=== PATIENT | male | born 1955 | race Caucasian/White ===

== ENCOUNTER 2016-12-06 09:19 | Day surgery (SDC) | payer BC ==
[2016-12-05 08:18] VITALS: BMI 25.7
[~2016-12-06 09:19] MED LIST: LACTATED RINGERS 1,000 ML IV SCH; LIDOCAINE 1% 20 ML VIAL (10MG/ML) FOR IV START INTRADERMA PRN
[2016-12-06 10:03] VITALS: RESP 16; TEMP 98.4
[2016-12-06] MEDS ORDERED: LIDOCAINE 1% 20 ML VIAL (10MG/ML) FOR IV START INTRADERMA ONE (10:08)
[2016-12-06] MEDS ORDERED: PROPOFOL 10 MG/ML 20 ML VIAL IV ONE (10:43)
[2016-12-06] MEDS ORDERED: LIDOCAINE 1% INJ 10MG/ML (20 ML MDV) ONE (10:43)
--- NOTE | 2016-12-06 11:04 | P.PCN ---
Date of Procedure: 12/06/16 Procedure(s) Performed: BRIEF HISTORY: Patient is a 61-year-old pleasant male, scheduled for an elective colonoscopy as a part of screening for colon neoplasia. PROCEDURE PERFORMED: Colonoscopy. PREOPERATIVE DIAGNOSIS: Screening for Colon cancer. IV sedation per Anesthesia. PROCEDURE: After informed consent was obtained, the patient, was brought into the endoscopy unit. IV sedation was administered by Anesthesia under continuous monitoring. Digital rectal examination was normal. Initially the Olympus CF- 160 flexible video colonoscope was then inserted in the rectum, gradually advanced into the cecum without any difficulty. Careful examination was performed as the scope was gradually being withdrawn. Ileocecal valve and the appendiceal orifice were visualized and appeared normal. Prep was excellent. Mucosa of the cecum, ascending colon, transverse colon, descending colon, sigmoid colon, and rectum appeared normal. Retroflexion was performed in the rectum and no lesions were seen. The patient tolerated the procedure well. IMPRESSION: Normal-appearing colon from rectum to cecum with no evidence of colorectal neoplasia. RECOMMENDATIONS: Findings of this examination were discussed with the patient as well as his family. He was advised to have a repeat screening colonoscopy in 10 years.
[2016-12-06 11:29] VITALS: BP 122/66; PULSE 55
== END 2016-12-06 11:51 | disposition home or self-care (01) ==
LOC: ORWHC2ENDO 09:19
PROVIDERS: ATTEND Internal Medicine Gastroenterology
DX: Z12.11 Encounter for screening for malignant neoplasm of colon (principal); I48.91 Unspecified atrial fibrillation; Z79.82 Long term (current) use of aspirin; Z79.899 Other long term (current) drug therapy
CPT/HCPCS: J2001; J2704; G0121

== ENCOUNTER 2022-10-07 06:08 | Inpatient (IN) | payer BC, MEDICARE ==
--- NOTE | 2022-10-07 06:40 | ED ---
Abdominal Pain HPI - General Chief Complaint: Abdominal Pain Stated Complaint: Drug reaction Time Seen by Provider: 10/07/22 06:21 Source: patient, RN notes reviewed Mode of arrival: ambulatory Limitations: no limitations - History of Present Illness Initial Comments: 66-year-old male presents emergency Department chief complaint of abdominal, leg swelling and shortness of breath. Patient states that started having shortness breath last week went to his PCPs office who told him he had an upper respiratory infection was placed on prednisone. Patient states that he started on Friday by Friday he had worsening swelling and which has now stopped his prednisone. Patient states is no history of congestive heart failure. Patient does have history of atrial fibrillation on Eliquis, Toprol and Lipitor. Patient denies any fevers chills denies sore throat. Patient hasn't went headache or any other reported URI symptoms. Patient states she does have some orthopnea. Patient denies any recent echo. - Related Data Home Medications Medication Instructions Recorded Confirmed Aspirin [Adult Low Dose Aspirin EC] 81 mg PO DAILY 10/23/16 12/05/16 Atorvastatin [Lipitor] 40 mg PO HS 10/23/16 12/06/16 Folic Acid 0.4 mg PO DAILY 10/23/16 12/05/16 Vitamin B Complex 1 each PO DAILY 10/23/16 12/05/16 Allergies Allergy/AdvReac Type Severity Reaction Status Date / Time No Known Allergies Allergy Verified 12/06/16 10:01 Review of Systems ROS Statement: Those systems with pertinent positive or pertinent negative responses have been documented in the HPI. ROS Other: All systems not noted in ROS Statement are negative. Past Medical History Past Medical History: Cancer, Hyperlipidemia Additional Past Medical History / Comment(s): [id number] REMISSION since 04/2014 History of Any Multi-Drug Resistant Organisms: None Reported Additional Past Surgical History / Comment(s): PORT A CATH FOR CHEMO THEN REMOVED. COLONOSCOPY Past Anesthesia/Blood Transfusion Reactions: Motion Sickness Past Psychological History: No Psychological Hx Reported Smoking Status: Never smoker Past Alcohol Use History: Occasional Past Drug Use History: None Reported - Past Family History Mother Family Medical History: Cancer General Exam Limitations: no limitations General appearance: alert, in no apparent distress Head exam: Present: atraumatic, normocephalic, normal inspection Eye exam: Present: normal appearance, PERRL, EOMI. Absent: scleral icterus, conjunctival injection, periorbital swelling ENT exam: Present: normal exam, mucous membranes moist Neck exam: Present: normal inspection, full ROM. Absent: tenderness, meningismus, lymphadenopathy Respiratory exam: Present: decreased breath sounds. Absent: normal lung sounds bilaterally, respiratory distress, wheezes, rales, rhonchi, stridor Cardiovascular Exam: Present: tachycardia, irregular rhythm, normal heart sounds. Absent: systolic murmur, diastolic murmur, rubs, gallop, clicks GI/Abdominal exam: Present: soft, distended, normal bowel sounds. Absent: tenderness, guarding, rebound, rigid Extremities exam: Present: pedal edema Neurological exam: Present: alert Skin exam: Present: warm, dry, intact, normal color. Absent: rash Course Vital Signs 10/07/22 10/07/22 10/07/22 06:16 06:33 07:47 Temperature 98.1 F 97.6 F Pulse Rate 157 H 154 H 158 H Respiratory 18 16 20 Rate Blood Pressure 134/86 117/90 117/99 O2 Sat by Pulse 98 97 Oximetry 10/07/22 08:03 Temperature Pulse Rate 125 H Respiratory 20 Rate Blood Pressure 100/90 O2 Sat by Pulse 96 Oximetry Medical Decision Making - Medical Decision Making Was pt. sent in by a medical professional or institution (, PA, APPLIED PSYCHOLOGY CHAIR, urgent care, hospital, or senior care...) When possible be specific @ -No Did you speak to anyone other than the patient for history (EMS, parent, family, police, friend...)? What history was obtained from this source @ -No Did you review nursing and triage notes (agree or disagree)? Why? @ -I reviewed and agree with nursing and triage notes Were old charts reviewed (outside hosp., previous admission, EMS record, old EKG, old radiological studies, urgent care reports/EKG's, senior care records)? Report findings @ -No old charts were reviewed Differential Diagnosis (chest pain, altered mental status, abdominal pain women, abdominal pain men, vaginal bleeding, weakness, fever, dyspnea, syncope, headache, dizziness, GI bleed, back pain, seizure, CVA, palpatations, mental health, musculoskeletal)? @ -nDifferential Dyspnea: Coronary syndrome, arrhythmia, tamponade, asthma, COPD, pulmonary embolism, pneumonia, pneumothorax, pulmonary effusion, anaphylaxis, diabetic ketoacidosis, flailed chest, pulmonary contusion, diaphragmatic rupture, anemia, neuromuscular, this is not meant to be an all-inclusive list. e EKG interpreted by me (3pts min.). @ -As above X-rays interpreted by me (1pt min.). @ -Chest x-ray shows pulmonary edema, questionable bibasilar infiltrates CT interpreted by me (1pt min.). @ -None done U/S interpreted by me (1pt. min.). @ -None done What testing was considered but not performed or refused? (CT, X-rays, U/S, labs)? Why? @ -None What meds were considered but not given or refused? Why? @ -None Did you discuss the management of the patient with other professionals (professionals i.e. , PA, APPLIED PSYCHOLOGY CHAIR, lab, RT, psych nurse, child welfare social worker, health education aide, teacher, commanding officer motorized squad, sample case porter)? Give summary @ -EM for admission secondary to A. fib RVR, CHF versus pneumonia patient with consult to cardiology. Was smoking cessation discussed for >3mins.? @ -No Was critical care preformed (if so, how long)? @ -35 minutes of critical care Were there social determinants of health that impacted care today? How? (Homelessness, low income, unemployed, alcoholism, drug addiction, transportation, low edu. Level, literacy, decrease access to med. care, shelter, rehab)? @ -No Was there de-escalation of care discussed even if they declined (Discuss DNR or withdrawal of care, Hospice)? DNR status @ -No What co-morbidities impacted this encounter? (DM, HTN, Smoking, COPD, CAD, Cancer, CVA, ARF, Chemo, Hep., AIDS, mental health diagnosis, sleep apnea, morbid obesity)? @ -A. fib, hyperlipidemia Was patient admitted / discharged? Hospital course, mention meds given and route, prescriptions, significant lab abnormalities, going to OR and other pertinent info. @ -Admitted patient's found to be in A. fib RVR with heart rate of 170 patient was started on Cardizem bolus along with Cardizem infusion. Chest x-ray shows questionable pneumonia versus CHF type picture. Patient was given Lasix, Rocephin, azithromycin. Patient is admitted with cardiology consult patient will have echocardiogram. Patient's heart rate is improving with Cardizem infusion. Undiagnosed new problem with uncertain prognosis? @ -No Drug Therapy requiring intensive monitoring for toxicity (Heparin, Nitro, Insulin, Cardizem)? @ -Cardizem Were any procedures done? @ -No Diagnosis/symptom? @ -A. fib RVR/chf/pneumonia Acute, or Chronic, or Acute on Chronic? @ -Acute Uncomplicated (without systemic symptoms) or Complicated (systemic symptoms)? @ -Complicated Side effects of treatment? @ -No Exacerbation, Progression, or Severe Exacerbation? @ -No Poses a threat to life or bodily function? How? (Chest pain, USA, MA, pneumonia, PE, COPD, DKA, ARF, appy, cholecystitis, CVA, Diverticulitis, Homicidal, Gaytan icidal, threat to staff... and all critical care pts) @ -Yes] - Lab Data Result diagrams: 10/07/22 06:50 10/07/22 06:50 Lab Results 10/07/22 10/07/22 10/07/22 Range/Units 06:50 06:50 06:50 WBC 6.3 (3.8-10.6) k/uL RBC 4.03 L (4.30-5.90) m/uL Hgb 13.8 (13.0-17.5) gm/dL Hct 40.0 (39.0-53.0) % MCV 99.4 (80.0-100.0) fL MCH 34.3 (25.0-35.0) pg MCHC 34.5 (31.0-37.0) g/dL RDW 14.3 (11.5-15.5) % Plt Count 140 L (150-450) k/uL MPV 9.0 Neutrophils % 71 % Lymphocytes % 18 % Monocytes % 6 % Eosinophils % 3 % Basophils % 0 % Neutrophils # 4.5 (1.3-7.7) k/uL Lymphocytes # 1.2 (1.0-4.8) k/uL Monocytes # 0.4 (0-1.0) k/uL Eosinophils # 0.2 (0-0.7) k/uL Basophils # 0.0 (0-0.2) k/uL Macrocytosis Slight PT 11.3 (9.0-12.0) sec INR 1.1 (<1.2) APTT 23.1 (22.0-30.0) sec Sodium 135 L (137-145) mmol/L Potassium 4.0 (3.5-5.1) mmol/L Chloride 108 H (98-107) mmol/L Carbon Dioxide 21 L (22-30) mmol/L Anion Gap 6 mmol/L BUN 20 (9-20) mg/dL Creatinine 0.80 (0.66-1.25) mg/dL Est GFR (CKD-EPI)AfAm >90 (>60 ml/min/1.73 sqM) Est GFR (CKD-EPI)NonAf >90 (>60 ml/min/1.73 sqM) Glucose 121 H (74-99) mg/dL Plasma Lactic Acid Lenny (0.7-2.0) mmol/L Calcium 8.8 (8.4-10.2) mg/dL Magnesium 2.1 (1.6-2.3) mg/dL Total Bilirubin 0.6 (0.2-1.3) mg/dL AST 87 H (17-59) U/L ALT 218 H (4-49) U/L Alkaline Phosphatase 62 (38-126) U/L Troponin I (0.000-0.034) ng/mL NT-Pro-B Natriuret Pep 2060 pg/mL Total Protein 5.2 L (6.3-8.2) g/dL Albumin 3.3 L (3.5-5.0) g/dL Urine Color Urine Appearance (Clear) Urine pH (5.0-8.0) Ur Specific Gering (1.001-1.035) Urine Protein (Negative) Urine Glucose (UA) (Negative) Urine Ketones (Negative) Urine Blood (Negative) Urine Nitrite (Negative) Urine Bilirubin (Negative) Urine Urobilinogen (<2.0) mg/dL Ur Leukocyte Esterase (Negative) Coronavirus (PCR) (Not Detectd) 10/07/22 10/07/22 10/07/22 Range/Units 06:50 06:50 07:38 WBC (3.8-10.6) k/uL RBC (4.30-5.90) m/uL Hgb (13.0-17.5) gm/dL Hct (39.0-53.0) % MCV (80.0-100.0) fL MCH (25.0-35.0) pg MCHC (31.0-37.0) g/dL RDW (11.5-15.5) % Plt Count (150-450) k/uL MPV Neutrophils % % Lymphocytes % % Monocytes % % Eosinophils % % Basophils % % Neutrophils # (1.3-7.7) k/uL Lymphocytes # (1.0-4.8) k/uL Monocytes # (0-1.0) k/uL Eosinophils # (0-0.7) k/uL Basophils # (0-0.2) k/uL Macrocytosis PT (9.0-12.0) sec INR (<1.2) APTT (22.0-30.0) sec Sodium (137-145) mmol/L Potassium (3.5-5.1) mmol/L Chloride (98-107) mmol/L Carbon Dioxide (22-30) mmol/L Anion Gap mmol/L BUN (9-20) mg/dL Creatinine (0.66-1.25) mg/dL Est GFR (CKD-EPI)AfAm (>60 ml/min/1.73 sqM) Est GFR (CKD-EPI)NonAf (>60 ml/min/1.73 sqM) Glucose (74-99) mg/dL Plasma Lactic Acid Lenny 1.1 (0.7-2.0) mmol/L Calcium (8.4-10.2) mg/dL Magnesium (1.6-2.3) mg/dL Total Bilirubin (0.2-1.3) mg/dL AST (17-59) U/L ALT (4-49) U/L Alkaline Phosphatase (38-126) U/L Troponin I 0.026 (0.000-0.034) ng/mL NT-Pro-B Natriuret Pep pg/mL Total Protein (6.3-8.2) g/dL Albumin (3.5-5.0) g/dL Urine Color Light Yellow Urine Appearance Clear (Clear) Urine pH 5.5 (5.0-8.0) Ur Specific Gering 1.012 (1.001-1.035) Urine Protein Negative (Negative) Urine Glucose (UA) Negative (Negative) Urine Ketones Negative (Negative) Urine Blood Negative (Negative) Urine Nitrite Negative (Negative) Urine Bilirubin Negative (Negative) Urine Urobilinogen <2.0 (<2.0) mg/dL Ur Leukocyte Esterase Negative (Negative) Coronavirus (PCR) (Not Detectd) 10/07/22 Range/Units 07:38 WBC (3.8-10.6) k/uL RBC (4.30-5.90) m/uL Hgb (13.0-17.5) gm/dL Hct (39.0-53.0) % MCV (80.0-100.0) fL MCH (25.0-35.0) pg MCHC (31.0-37.0) g/dL RDW (11.5-15.5) % Plt Count (150-450) k/uL MPV Neutrophils % % Lymphocytes % % Monocytes % % Eosinophils % % Basophils % % Neutrophils # (1.3-7.7) k/uL Lymphocytes # (1.0-4.8) k/uL Monocytes # (0-1.0) k/uL Eosinophils # (0-0.7) k/uL Basophils # (0-0.2) k/uL Macrocytosis PT (9.0-12.0) sec INR (<1.2) APTT (22.0-30.0) sec Sodium (137-145) mmol/L Potassium (3.5-5.1) mmol/L Chloride (98-107) mmol/L Carbon Dioxide (22-30) mmol/L Anion Gap mmol/L BUN (9-20) mg/dL Creatinine (0.66-1.25) mg/dL Est GFR (CKD-EPI)AfAm (>60 ml/min/1.73 sqM) Est GFR (CKD-EPI)NonAf (>60 ml/min/1.73 sqM) Glucose (74-99) mg/dL Plasma Lactic Acid Lenny (0.7-2.0) mmol/L Calcium (8.4-10.2) mg/dL Magnesium (1.6-2.3) mg/dL Total Bilirubin (0.2-1.3) mg/dL AST (17-59) U/L ALT (4-49) U/L Alkaline Phosphatase (38-126) U/L Troponin I (0.000-0.034) ng/mL NT-Pro-B Natriuret Pep pg/mL Total Protein (6.3-8.2) g/dL Albumin (3.5-5.0) g/dL Urine Color Urine Appearance (Clear) Urine pH (5.0-8.0) Ur Specific Gering (1.001-1.035) Urine Protein (Negative) Urine Glucose (UA) (Negative) Urine Ketones (Negative) Urine Blood (Negative) Urine Nitrite (Negative) Urine Bilirubin (Negative) Urine Urobilinogen (<2.0) mg/dL Ur Leukocyte Esterase (Negative) Coronavirus (PCR) Not Detected (Not Detectd) - EKG Data -: EKG Interpreted by Me EKG Comments: EKG ordered 6:40 A. fib with RVR rate of 157 QRS 90 QT/QTc 284/372 Critical Care Time Critical Care Time: Yes Total Critical Care Time: 35 Disposition Clinical Impression: Atrial fibrillation with RVR, CHF (congestive heart failure), Pneumonia Disposition: ADMITTED IP TO THIS HOSP Condition: Fair Referrals: Sung Atwood DO [Primary Care Provider] - 1-2 days Time of Disposition: 08:18
[2022-10-07] MEDS ORDERED: DILTIAZEM DRIP BOLUS FROM BAG 1 MG SOLN IV ONE ×2 (06:43→11:35)
[2022-10-07] MEDS: DILTIAZEM 125 MG in SODIUM CHLORIDE 0.9% 100 ML IV SCH ×2 (06:58→20:38)
[2022-10-07 07:04] LABS: Basophils % (A) 0 %; Eosinophils # (A) 0.2 k/uL (0-0.7); Eosinophils % (A) 3 %; HGB 13.8 gm/dL (13.0-17.5); Lymphocytes # (A) 1.2 k/uL (1.0-4.8); Lymphocytes % (A) 18 %; MCH 34.3 pg (25.0-35.0); MCHC 34.5 g/dL (31.0-37.0); MCV 99.4 fL (80.0-100.0); Macrocytosis Slight; Monocytes # (A) 0.4 k/uL (0-1.0); Monocytes % (A) 6 %; Neutrophils # (A) 4.5 k/uL (1.3-7.7); Neutrophils % (A) 71 %; Platelet Count 140 k/uL (150-450); RBC 4.03 m/uL (4.30-5.90); RDW 14.3 % (11.5-15.5); WBC 6.3 k/uL (3.8-10.6)
[2022-10-07 07:12] LABS: INR 1.1 (<1.2); Partial Thromboplastin Time 23.1 sec (22.0-30.0); Prothrombin Time 11.3 sec (9.0-12.0)
--- NOTE | 2022-10-07 07:15 | XR ---
EXAMINATION TYPE: XR chest 2V DATE OF EXAM: 10/07/2022 7:05 AM COMPARISON: None TECHNIQUE: XR chest 2V Frontal and lateral views of the chest. CLINICAL INDICATION:Male, 66 years old with history of difficulty breathing; FINDINGS: Lungs/Pleura: Bibasilar airspace opacities. There is no evidence of pleural effusion, focal consolida tion, or pneumothorax. Pulmonary vascularity: Unremarkable. Heart/mediastinum: Cardiomediastinal silhouette is prominent in size. Atherosclerotic calcifications are seen in the aorta. Musculoskeletal: No acute osseous pathology. IMPRESSION: Bibasilar airspace opacities correlate for pneumonia.
[2022-10-07 07:22] LABS: ALT 218 U/L (4-49); AST 87 U/L (17-59); African American GFR (CKD) >90 (>60 ml/min/1.73 sqM); Albumin 3.3 g/dL (3.5-5.0); Alkaline Phosphatase 62 U/L (38-126); Anion Gap 6 mmol/L; Blood Urea Nitrogen 20 mg/dL (9-20); Calcium 8.8 mg/dL (8.4-10.2); Carbon Dioxide 21 mmol/L (22-30); Chloride 108 mmol/L (98-107); Glucose 121 mg/dL (74-99); Magnesium 2.1 mg/dL (1.6-2.3); Non-African American GFR(CKD) >90 (>60 ml/min/1.73 sqM); Sodium 135 mmol/L (137-145); Total Bilirubin 0.6 mg/dL (0.2-1.3); Total Protein 5.2 g/dL (6.3-8.2)
[2022-10-07 07:28] LABS: NT-Pro-B-Type Natriuretic Pept 2060 pg/mL
[2022-10-07 07:59] LABS: Appearance,Urine Clear (Clear); Bilirubin,Urine Negative (Negative); Blood,Urine Negative (Negative); Color,Urine Light Yellow; Glucose,Urine (UA) Negative (Negative); Ketones,Urine Negative (Negative); Leukocyte Esterase,Urine Negative (Negative); Nitrite,Urine Negative (Negative); PH, Urine 5.5 (5.0-8.0); Protein,Urine Negative (Negative); Specific Gravity,Urine 1.012 (1.001-1.035); Urobilinogen,Urine <2.0 mg/dL (<2.0)
[2022-10-07] MEDS ORDERED: PNEUMONIA PROTOCOL UTILIZED 1 EACH MISC PO PRN (08:18)
[2022-10-07] MEDS ORDERED: AZITHROMYCIN 500 MG in SODIUM CHLORIDE 0.9% 250 ML IVPB STA (08:18)
[2022-10-07] MEDS ORDERED: FUROSEMIDE 10 MG/ML 4 ML VIAL IV STA (08:24)
[2022-10-07] MEDS ORDERED: APIXABAN 5 MG TAB PO SCH (11:00)
[2022-10-07] MEDS ORDERED: METOPROLOL TARTRATE 25 MG TAB PO SCH (11:00)
--- NOTE | 2022-10-07 11:58 | P.CRDCN ---
History of Present Illness History of present illness: HISTORY OF PRESENT ILLNESS: This is a 66-year-old male with a past medical history significant for paroxysmal atrial fibrillation and hyperlipidemia. 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 Stubbs. We have been asked to see the patient in consultation for afib with RVR. Patient examined at the bedside. Patient states he has been feeling short of breath for the past week. He states he went to see his PCP who diagnosed him with a sinus infection. He was prescribed steroids at that time. Patient presented to the hospital with continued shortness of breath and lower extremity edema. Patient was found to be in afib with RVR. Patient states last time he was in atrial fibrillation was brought to years ago to his knowledge. He denies any chest pain or pressure. At the time of examination, he remains in atrial fibrillation with a heart rate around 105. * EKG reveals atrial fibrillation with RVR * Chest xray bibasilar airspace opacities. Correlate for pneumonia. * Laboratory data: WBC 6.3. Hemoglobin 13.8. Platelet count 140. Sodium 135. Potassium 4.0. B UN 20. Creatinine 0.80. Troponin 0.026. ProBNP 2059. * Current home cardiac medications include Xarelto 20mg daily, Lipitor 40 mg at night, and metoprolol succinate 25 mg daily REVIEW OF SYSTEMS: At the time of my exam: CONSTITUTIONAL: Denies fever or chills. HEENT: Denies blurred vision, vision changes, or eye pain. Denies hemoptysis CARDIOVASCULAR: Denies chest pain. Denies orthopnea. Denies PND. Denies palpitations RESPIRATORY: Denies shortness of breath. GASTROINTESTINAL: Denies abdominal pain. Denies nausea or vomiting. HEMATOLOGIC: Denies bleeding disorders. GENITOURINARY: Denies any blood in urine. SKIN: Denies pruitis. Denies rash. PHYSICAL EXAM: VITAL SIGNS: Reviewed. GENERAL: Well-developed in no acute distress. HEENT: Head is normocephalic. Pupils are equal, round. Sclerae anicteric. Mucous membranes of the mouth are moist. Neck supple. No JVD or thyromegaly LUNGS: Respirations even and unlabored. Lungs essentially clear to auscultation bilaterally. HEART: Regular rate and rhythm. S1 and S2 heard. ABDOMEN: Soft. Nondistended. Nontender. EXTREMITIES: Normal range of motion. No clubbing or cyanosis. Peripheral pulses intact. No lower extremity edema NEUROLOGIC: Awake and alert. Oriented x 3. ASSESSMENT: Shortness of breath Paroxysmal atrial fibrillation with RVR Mild acute heart failure, type unknown, echo pending, may be secondary to A. fib with RVR History of hyperlipidemia PLAN: Obtain 2-D echo to assess cardiac structure and function Resume Xarelto Patient received one time dose of IV Lasix in the emergency room. No further diuretics at this time. Add metoprolol tartrate 50 mg twice a day Continue IV Cardizem per Dr. Mark Continue telemetry monitoring Further recommendations pending patient's course Nurse practitioner note has been reviewed by physician. Signing provider agrees with the documented findings, assessment, and plan of care. Past Medical History Past Medical History: Cancer, Hyperlipidemia Additional Past Medical History / Comment(s): [id number] REMISSION since 04/2014 History of Any Multi-Drug Resistant Organisms: None Reported Additional Past Surgical History / Comment(s): PORT A CATH FOR CHEMO THEN REMOVED. COLONOSCOPY Past Anesthesia/Blood Transfusion Reactions: Motion Sickness Past Psychological History: No Psychological Hx Reported Smoking Status: Never smoker Past Alcohol Use History: Occasional Past Drug Use History: None Reported - Past Family History Mother Family Medical History: Cancer Medications and Allergies Home Medications Medication Instructions Recorded Confirmed Type Aspirin [Adult Low Dose Aspirin EC] 81 mg PO DAILY 10/23/16 10/07/22 History Atorvastatin [Lipitor] 40 mg PO HS 10/23/16 10/07/22 History Vitamin B Complex 1 cap PO DAILY 10/23/16 10/07/22 History Albuterol Sulfate [Albuterol 2 puff INHALATION RT-QID PRN 10/07/22 10/07/22 History Sulfate Hfa] Cetirizine HCl [Zyrtec] 10 mg PO DAILY 10/07/22 10/07/22 History Glucosamine/Chondro Gaytan A [Cosamin 1 tab PO HS 10/07/22 10/07/22 History Ds Tablet] Metoprolol Succinate (ER) [Toprol 25 mg PO DAILY 10/07/22 10/07/22 History Xl] Multivitamins, Thera [Multivitamin 1 tab PO HS 10/07/22 10/07/22 History (formulary)] [place]-3/Dha/Epa/Fish Oil [Fish Oil 1 cap PO HS 10/07/22 10/07/22 History 1,000 mg Softgel] predniSONE See Taper PO DIRECTED 10/07/22 10/07/22 History Allergies Allergy/AdvReac Type Severity Reaction Status Date / Time No Known Allergies Allergy Verified 10/07/22 08:48 Physical Exam Vitals: Vital Signs Temp Pulse Resp BP Pulse Ox 10/07/22 08:03 125 H 20 100/90 96 10/07/22 07:47 97.6 F 158 H 20 117/99 97 10/07/22 06:33 154 H 16 117/90 10/07/22 06:16 98.1 F 157 H 18 134/86 98 Intake and Output 10/06/22 10/07/22 10/07/22 22:59 06:59 14:59 Intake Total 3 Output Total 1999 Intake: Intake, IV Titration 3 Amount Diltiazem 125 mg In 3 Sodium Chloride 0.9% 100 ml @ 5 MG/HR 5 mls/hr IV .Q24H [facility] Rx#:[id number] Output: Urine 1999 Other: # Voids 2 Weight 86.183 kg Results 10/07/22 06:50 10/07/22 06:50 Cardiac Enzymes 10/07/22 10/07/22 Range/Units 06:50 06:50 AST 87 H (17-59) U/L Troponin I 0.026 (0.000-0.034) ng/mL Coagulation 10/07/22 Range/Units 06:50 PT 11.3 (9.0-12.0) sec APTT 23.1 (22.0-30.0) sec CBC 10/07/22 Range/Units 06:50 WBC 6.3 (3.8-10.6) k/uL RBC 4.03 L (4.30-5.90) m/uL Hgb 13.8 (13.0-17.5) gm/dL Hct 40.0 (39.0-53.0) % Plt Count 140 L (150-450) k/uL Comprehensive Metabolic Panel 10/07/22 Range/Units 06:50 Sodium 135 L (137-145) mmol/L Potassium 4.0 (3.5-5.1) mmol/L Chloride 108 H (98-107) mmol/L Carbon Dioxide 21 L (22-30) mmol/L BUN 20 (9-20) mg/dL Creatinine 0.80 (0.66-1.25) mg/dL Glucose 121 H (74-99) mg/dL Calcium 8.8 (8.4-10.2) mg/dL AST 87 H (17-59) U/L ALT 218 H (4-49) U/L Alkaline Phosphatase 62 (38-126) U/L Total Protein 5.2 L (6.3-8.2) g/dL Albumin 3.3 L (3.5-5.0) g/dL Current Medications Generic Name Dose Route Start Last Admin Trade Name Freq PRN Reason Stop Dose Admin Albuterol/Ipratropium 3 ml 10/07/22 08:18 Ipratropium-Albuterol 3 Ml Neb INHALATION RT-Q4H PRN shortness of breath Diltiazem HCl 125 mg/ Sodium 125 mls @ 5 mls/hr 10/07/22 07:00 10/07/22 07:34 Chloride IV 10 mg/hr .Q24H MARILYNN 10 mls/hr Infusion 5 MG/HR Miscellaneous Information 1 each 10/07/22 08:18 Pneumonia Protocol Utilized 1 Each Misc PO ONCE PRN Per Protocol Intake and Output 10/06/22 10/07/22 10/07/22 22:59 06:59 14:59 Intake Total 3 Output Total 1999 Intake: Intake, IV Titration 3 Amount Diltiazem 125 mg In 3 Sodium Chloride 0.9% 100 ml @ 5 MG/HR 5 mls/hr IV .Q24H [facility] Rx#:[id number] Output: Urine 1999 Other: # Voids 2 Weight 86.183 kg 10/07/22 06:50 10/07/22 06:50
[2022-10-07] MEDS: METOPROLOL TARTRATE 50 MG TAB PO SCH ×2 (12:05→20:38)
[2022-10-07] MEDS ORDERED: ALBUTEROL HFA INHALER INHALATION PRN (12:26)
--- NOTE | 2022-10-07 12:31 | P.HPIM ---
History of Present Illness 66-year-old male with known history of proximal atrial fibrillation post chemotherapy for CLL which is in remission. Complaints of shortness of breath for about a week patient is found to be in atrial fibrillation. Patient was diagnosed with sinus infection was given a dose of steroids which made him to have a bilateral lower x-ray edema. Patient is complaining of orthopnea and paroxysmal nocturnal dyspnea patient has elevated BNP of 2000 was given a dose of Lasix after which patient clinically euvolemic at this time. Patient takes 25 mg of metoprolol presently on Cardizem 10, patient was given 50 mg twice a day of metoprolol and patient is on Xarelto at home which is being continued. Chest x-ray showed bilateral infiltrate was suspicious for pneumonia although clinically patient doesn't have pneumonia and a pro-calcitonin level is not elevated, patient doesn't have any leukocytosis. Patient had symptoms of gastri tis after the prednisone REVIEW OF SYSTEMS: CONSTITUTIONAL: No fever, no malaise, no fatigue. HEENT: No recent visual problems or hearing problems. Denied any sore throat. CARDIOVASCULAR: No chest pain,no palpitations, no syncope. PULMONARY:no hemoptysis. GASTROINTESTINAL: No diarrhea, no nausea, no vomiting, no abdominal pain. NEUROLOGICAL: No headaches, no weakness, no numbness. HEMATOLOGICAL: Denies any bleeding or petechiae. GENITOURINARY: Denies any burning micturition, frequency, or urgency. MUSCULOSKELETAL/RHEUMATOLOGICAL: Denies any joint pain, swelling, or any muscle pain. ENDOCRINE: Denies any polyuria or polydipsia. The rest of the 14-point review of systems is negative. PHYSICAL EXAMINATION: GENERAL: The patient is alert and oriented x3, not in any acute distress. Well developed, well nourished. HEENT: Pupils are round and equally reacting to light. EOMI. No scleral icterus. No conjunctival pallor. Normocephalic, atraumatic. No pharyngeal erythema. No t hyromegaly. CARDIOVASCULAR: S1 and S2 present. No murmurs, rubs, or gallops. PULMONARY: Chest is clear to auscultation, no wheezing or crackles. ABDOMEN: Soft, nontender, nondistended, normoactive bowel sounds. No palpable organomegaly. MUSCULOSKELETAL: No joint swelling or deformity. EXTREMITIES: No cyanosis, clubbing, or pedal edema. NEUROLOGICAL: Gross neurological examination did not reveal any focal deficits. SKIN: No rashes. Assessment and plan Atrial fibrillation with rapid ventricular rate: Continue with metoprolol been off Cardizem, patient is presently euvolemic, repeat echo was ordered -Proximal atrial fibrillation -Mild acute congestive heart failure EF is unknown improved with the dose of Lasix -Hyperlipidemia DVT prophylaxis: On anticoagulation as mentioned above Past Medical History Past Medical History: Cancer, Hyperlipidemia Additional Past Medical History / Comment(s): [id number] REMISSION since 04/2014 History of Any Multi-Drug Resistant Organisms: None Reported Additional Past Surgical History / Comment(s): PORT A CATH FOR CHEMO THEN R EMOVED. COLONOSCOPY Past Anesthesia/Blood Transfusion Reactions: Motion Sickness Past Psychological History: No Psychological Hx Reported Smoking Status: Never smoker Past Alcohol Use History: Occasional Past Drug Use History: None Reported - Past Family History Mother Family Medical History: Cancer Medications and Allergies Home Medications Medication Instructions Recorded Confirmed Type Aspirin [Adult Low Dose Aspirin EC] 81 mg PO DAILY 10/23/16 10/07/22 History Atorvastatin [Lipitor] 40 mg PO HS 10/23/16 10/07/22 History Vitamin B Complex 1 cap PO DAILY 10/23/16 10/07/22 History Albuterol Sulfate [Albuterol 2 puff INHALATION RT-QID PRN 10/07/22 10/07/22 History Sulfate Hfa] Cetirizine HCl [Zyrtec] 10 mg PO DAILY 10/07/22 10/07/22 History Glucosamine/Chondro Gaytan A [Cosamin 1 tab PO HS 10/07/22 10/07/22 History Ds Tablet] Metoprolol Succinate (ER) [Toprol 25 mg PO DAILY 10/07/22 10/07/22 History Xl] Multivitamins, Thera [Multivitamin 1 tab PO HS 10/07/22 10/07/22 History (formulary)] Orr-3/Dha/Epa/Fish Oil [Fish Oil 1 cap PO HS 10/07/22 10/07/22 History 1,000 mg Softgel] predniSONE See Taper PO DIRECTED 10/07/22 10/07/22 History Allergies Allergy/AdvReac Type Severity Reaction Status Date / Time No Known Allergies Allergy Verified 10/07/22 08:48 Physical Exam Vitals: Vital Signs Temp Pulse Resp BP Pulse Ox 10/07/22 12:00 98 F 114 H 18 118/79 95 10/07/22 08:03 125 H 20 100/90 96 10/07/22 07:47 97.6 F 158 H 20 117/99 97 10/07/22 06:33 154 H 16 117/90 10/07/22 06:16 98.1 F 157 H 18 134/86 98 Intake and Output 10/06/22 10/07/22 10/07/22 22:59 06:59 14:59 Intake Total 3 Output 1999 Intake: Intake, IV Titration 3 Amount Diltiazem 125 mg In 3 Sodium Chloride 0.9% 100 ml @ 5 MG/HR 5 mls/hr IV .Q24H [facility] Rx#:[id number] Output: Urine 1999 Other: # Voids 2 Weight 86.183 kg Results CBC & Chem 7: 10/07/22 06:50 10/07/22 06:50 Labs: Abnormal Lab Results - Last 24 Hours (Table) 10/07/22 10/07/22 Range/Units 06:50 06:50 RBC 4.03 L (4.30-5.90) m/uL Plt Count 140 L (150-450) k/uL Sodium 135 L (137-145) mmol/L Chloride 108 H (98-107) mmol/L Carbon Dioxide 21 L (22-30) mmol/L Glucose 121 H (74-99) mg/dL AST 87 H (17-59) U/L ALT 218 H (4-49) U/L Total Protein 5.2 L (6.3-8.2) g/dL Albumin 3.3 L (3.5-5.0) g/dL
[2022-10-07] MEDS: RIVAROXABAN 20 MG TAB PO SCH (17:04)
[2022-10-07] MEDS: ATORVASTATIN 40 MG TAB PO SCH (20:38)
[2022-10-07] MEDS ORDERED: ATORVASTATIN 40 MG TAB PO SCH (21:00)
[2022-10-07] MEDS: IPRATROPIUM-ALBUTEROL 3 ML NEB INHALATION PRN (21:35)
[2022-10-07] MEDS ORDERED: ACETAMINOPHEN TAB 325 MG TAB PO STA (23:25)
[2022-10-07] MEDS ORDERED: ACETAMINOPHEN TAB 325 MG TAB PO PRN (23:25)
--- NOTE | 2022-10-08 06:38 | XR ---
EXAMINATION TYPE: XR chest 2V DATE OF EXAM: 10/08/2022 COMPARISON: 10/07/2022 HISTORY: Shortness of breath TECHNIQUE: Frontal and lateral views of the chest are obtained. FINDINGS: Scattered senescent parenchymal changes noted. Hyperinflation compatible with COPD. Perihilar basilar infiltrates persist although appear to be improving. Trace pleural effusions are salmon spected. Heart size is stable. Mediastinal structures are stable and grossly unremarkable. No evidence for hilar prominence. Degenerative changes dorsal spine. IMPRESSION: 1. Perihilar basilar infiltrates persist although appear to be improving. Trace pleural effusions are suspected.
--- NOTE | 2022-10-08 07:26 | CA ---
Transthoracic Echo Report Name: Humberto Reynolds Age: 66 Gender: M : 1955 Exam Date: 10/07/2022 14:54 Exam Location: [facility] Ht (in): 72 Wt (lb): 190 Ordering Physician: Luís Bazzi PAC Attending/Referring Phys: [id number], Rose Mary Supervisor Public Health Nursing Andrew Hanson Procedure CPT: Indications: chf Cardiac Hx: Technical Quality: Fair Contrast 1: Total Dose (mL): Contrast 2: Total Dose (mL): MEASUREMENTS (Male / Female) Normal Values 2D ECHO LV Diastolic Diameter PLAX 5.0 cm 4.2 - 5.9 / 3.9 - 5.3 cm LV Systolic Diameter PLAX 3.8 cm IVS Diastolic Thickness 1.6 cm 0.6 - 1.0 / 0.6 - 0.9 cm LVPW Diastolic Thickness 1.4 cm 0.6 - 1.0 / 0.6 - 0.9 cm LV Relative Wall Thickness 0.6 RV Internal Dim ED PLAX 3.3 cm Aortic Root Diameter 4.3 cm LA Systolic Diameter LX 4.0 cm 3.0 - 4.0 / 2.7 - 3.8 cm LV Diastolic Volume MOD BP 95.2 cm??? 67 - 155 / 56 - 104 cm??? LV Systolic Volume MOD BP 52.5 cm??? - 58 / 19 - 49 cm??? LV Ejection Fraction MOD BP 44.9 % >= 55 % LV Cardiac Index MOD BP 1889.8 cm???/min???m??? LV Diastolic Volume MOD 4C 99.6 cm??? LV Systolic Volume MOD 4C 60.5 cm??? LV Ejection Fraction MOD 4C 39.2 % LV Cardiac Index MOD 4C 1730.0 cm???/min???m??? LV Diastolic Length 4C 7.5 cm LV Systolic Length 4C 7.2 cm LV Diastolic Volume MOD 2C 85.8 cm??? LV Systolic Volume MOD 2C 45.7 cm??? LV Ejection Fraction MOD 2C 46.7 % LV Cardiac Index MOD 2C 1773.7 cm???/min???m??? LV Diastolic Length 2C 8.0 cm LV Systolic Length 2C 7.3 cm LA Volume 104.3 cm??? 18 - 58 / 22 - 52 cm??? Ascending Aorta Diameter 3.6 cm DOPPLER AV Peak Velocity 89.7 cm/s AV Peak Gradient 3.2 mmHg LVOT Peak Velocity 75.4 cm/s LVOT Peak Gradient 2.3 mmHg MV Peak Velocity 100.2 cm/s MV Peak Gradient 4.0 mmHg MV Mean Velocity 44.2 cm/s MV Mean Gradient 1.1 mmHg MV Velocity Time Integral 29.1 cm MR Peak Velocity 445.1 cm/s MR Peak Gradient 79.3 mmHg Mitral E Point Velocity 95.0 cm/s Mitral A Point Velocity 43.2 cm/s Mitral E to A Ratio 2.2 MV Deceleration Time 211.3 ms MV E' Velocity 3.6 cm/s Mitral E to MV E' Ratio 26.6 TR Peak Velocity 208.5 cm/s TR Peak Gradient 17.4 mmHg Right Ventricular Systolic Press 22.5 mmHg PV Peak Velocity 68.9 cm/s PV Peak Gradient 1.9 mmHg FINDINGS Left Ventricle Normal LV size. Left ventricular ejection fraction is estimated at 45-50 %.Moderately increased left ventricular wall thickness. Mild global hypokinesis Right Ventricle Normal right ventricular size. RVSP= 27mmhg. Right Atrium Mild right atrial dilatation. Left Atrium LA volume index= 50 ml/m2 Mitral Valve Structurally normal mitral valve. Mild MR.mitral annular calcification. Aortic Valve Trileaflet aortic valve. No aortic valve stenosis or regurgitation.aortic valve sclerosis. Tricuspid Valve Structurally normal tricuspid valve. Mild TR. Pulmonic Valve Pulmonic valve not well visualized. No pulmonic regurgitation. Pericardium Normal pericardium. Aorta Mildly dilated aortic annulus. CONCLUSIONS 1. Normal left ventricle size with mild global hypokinesis 2. Mild mitral and tricuspid regurgitation with no evidence of pulmonary hypertension Previewed by: Dr. Dina Merino MD (Electronically Signed) Final Date: 08 October 2022 07:25
[2022-10-08] MEDS: IPRATROPIUM-ALBUTEROL 3 ML NEB INHALATION PRN ×3 (08:01→21:04)
[2022-10-08] MEDS ORDERED: FUROSEMIDE 10 MG/ML 4 ML VIAL IV STA (08:16)
[2022-10-08] MEDS: ASPIRIN 81 MG PO SCH (08:17)
[2022-10-08] MEDS: METOPROLOL TARTRATE 50 MG TAB PO SCH ×3 (08:18→20:20)
[2022-10-08] MEDS ORDERED: AMIODARONE 360 MG in DEXTROSE 5% IN WATER 200 ML IV ONE ×2 (09:07)
[2022-10-08] MEDS ORDERED: DEXTROSE 5% IN WATER 100 ML with AMIODARONE 150 MG IV ONE (09:07)
--- NOTE | 2022-10-08 11:00 | P.PN ---
Subjective HISTORY OF PRESENT ILLNESS: This is a 66-year-old male with a past medical history significant for paroxysmal atrial fibrillation and hyperlipidemia. Patient follows with a manager support services in [facility], Dr. Stubbs. We have been asked to see the patient in consultation for afib with RVR. Patient examined at the bedside. Patient states he has been feeling short of breath for the past week. He states he went to see his PCP who diagnosed him with a sinus infection. He was prescribed steroids at that time. Patient presented to the hospital with continued shortness of breath and lower extremity edema. Patient was found to be in afib with RVR. Patient states last time he was in atrial fibrillation was brought to years ago to his knowledge. He denies any chest pain or pressure. At the time of examination, he remains in atrial fibrillation with a heart rate around 105. * EKG reveals atrial fibrillation with RVR * Chest xray bibasilar airspace opacities. Correlate for pneumonia. * Laboratory data: WBC 6.3. Hemoglobin 13.8. Platelet count 140. Sodium 135. Potassium 4.0. B UN 20. Creatinine 0.80. Troponin 0.026. ProBNP 2059. * Current home cardiac medications include Xarelto 20mg daily, Lipitor 40 mg at night, and metoprolol succinate 25 mg daily 10/08/2022 Patient examined this morning at the bedside. Patient denies chest pain or pressure. He reports shortness of breath. He did receive a dose of IV Lasix this morning. He remains in atrial fibrillation with uncontrolled ventricular rates. He remains on IV Cardizem. Echocardiogram completed revealing ejection fraction 45-50%, mild global hypokinesis, mild TR, and mild MR PHYSICAL EXAM: VITAL SIGNS: Reviewed. GENERAL: Well-developed in no acute distress. HEENT: Head is normocephalic. Pupils are equal, round. Sclerae anicteric. Mucous membranes of the mouth are moist. Neck supple. No JVD or thyromegaly LUNGS: Respirations even and unlabored. Lungs diminished with crackles at the bases HEART: Irregular rate and rhythm. S1 and S2 heard. ABDOMEN: Soft. Nondistended. Nontender. EXTREMITIES: Normal range of motion. No clubbing or cyanosis. Peripheral pulses intact. No lower extremity edema NEUROLOGIC: Awake and alert. Oriented x 3. ASSESSMENT: Shortness of breath Paroxysmal atrial fibrillation with RVR Mild acute heart failure, with mildly reduced EF 4550%, may be secondary to A. fib with RVR History of hyperlipidemia PLAN: Discontinue IV Cardizem Begin IV amiodarone bolus and infusion per protocol Increase metoprolol tartrate to 50 mg 3 times a day Add IV Lasix 40 mg every 12 hours for a total of 2 doses Daily weights, accurate I&O, and monitor kidney function Possible cardioversion tomorrow if patients rates remain uncontrolled Further recommendations pending patient's course Nurse practitioner note has been reviewed by physician. Signing provider agrees with the documented findings, assessment, and plan of care. Objective - Vital Signs Vital signs: Vital Signs Temp 97.8 F 10/08/22 08:00 Pulse 132 H 10/08/22 09:56 Resp 16 10/08/22 10:09 BP 115/70 10/08/22 10:09 Pulse Ox 95 10/08/22 10:09 FiO2 21 10/07/22 21:35 Intake & Output 10/07/22 10/08/22 10/08/22 18:59 06:59 18:59 Intake Total 333 122 Output Total 3000 1400 Balance -3053 -8348 Weight 86.183 kg 87 kg Intake: Intake, IV Titration 3 122 Amount Diltiazem 125 mg In 3 122 Sodium Chloride 0.9% 100 ml @ 5 MG/HR 5 mls/hr IV .Q24H [facility] Rx#:[id number] Oral 330 Output: Urine 3000 1400 Other: Voiding Method Toilet # Voids 2 - Labs CBC & Chem 7: 10/07/22 06:50 10/07/22 06:50
[2022-10-08 11:51] LABS: African American GFR (CKD) >90 (>60 ml/min/1.73 sqM); Anion Gap 8 mmol/L; Blood Urea Nitrogen 15 mg/dL (9-20); Calcium 9.4 mg/dL (8.4-10.2); Carbon Dioxide 27 mmol/L (22-30); Chloride 102 mmol/L (98-107); Glucose 114 mg/dL (74-99); Magnesium 2.4 mg/dL (1.6-2.3); Non-African American GFR(CKD) >90 (>60 ml/min/1.73 sqM); Potassium 4.2 mmol/L (3.5-5.1); Sodium 137 mmol/L (137-145)
[2022-10-08] MEDS: AMIODARONE 450 MG in DEXTROSE 5% IN WATER 250 ML IV SCH ×2 (15:52)
[2022-10-08] MEDS: RIVAROXABAN 20 MG TAB PO SCH (17:43)
[2022-10-08] MEDS: ATORVASTATIN 40 MG TAB PO SCH (20:20)
[2022-10-08] MEDS: LOSARTAN 25 MG TAB PO SCH (20:20)
[2022-10-08] MEDS: FUROSEMIDE 10 MG/ML 4 ML VIAL IV SCH (20:21)
--- NOTE | 2022-10-09 05:37 | P.PN ---
Subjective Progress Note Date: 10/08/22 66-year-old male with known history of proximal atrial fibrillation post chemotherapy for CLL which is in remission. Complaints of shortness of breath for about a week patient is found to be in atrial fibrillation. Patient was diagnosed with sinus infection was given a dose of steroids which made him to have a bilateral lower x-ray edema. Patient is complaining of orthopnea and paroxysmal nocturnal dyspnea patient has elevated BNP of 2000 was given a dose of Lasix after which patient clinically euvolemic at this time. Patient takes 25 mg of metoprolol presently on Cardizem 10, patient was given 50 mg twice a day of metoprolol and patient is on Xarelto at home which is being continued. Chest x-ray showed bilateral infiltrate was suspicious for pneumonia although clinically patient doesn't have pneumonia and a pro-calcitonin level is not elevated, patient doesn't have any leukocytosis. Patient had symptoms of gastritis after the prednisone 10/08/2022 Patient is seen and evaluated in follow-up with cardiology following and was on Cardizem drip continue to have elevated rates and evaluated by cardiology again this morning being started on amiodarone drip. Plan is for possible card ioversion patient does not convert in a.m. Patient denies chest pain or worsening palpitations. Patient reports he still feels short of breath with exertion although is maintaining oxygen saturations above 90% on room air. Encouraged to increase activity as tolerated. Patient reports to tolerating diet with no reported nausea or vomiting noted. Patient also being transitioned to IV Lasix twice daily per cardiology and would recommend repeat labs to monitor kidney functions and electrolytes. Review of systems: Constitutional: No reports of fatigue, fever, or chills Cardiovascular: No reports of chest pain or palpitations Respiratory: reports of shortness of breath, no cough GI: No reports of nausea, vomiting, or diarrhea : No reports of dysuria or retention Neurovascular: No reports of weakness or numbness All medications have been reviewed PHYSICAL EXAMINATION: GENERAL: The patient is alert and oriented x3, not in any acute distress. Well developed, well nourished. HEENT: Pupils are round and equally reacting to light. EOMI. No scleral icterus. No conjunctival pallor. Normocephalic, atraumatic. No pharyngeal erythema. No thyromegaly. CARDIOVASCULAR: S1 and S2 muffled, irregular PULMONARY: Chest is clear to auscultation, no wheezing or crackles. ABDOMEN: Soft, nontender, nondistended, normoactive bowel sounds. No palpable organomegaly. MUSCULOSKELETAL: No joint swelling or deformity. EXTREMITIES: No cyanosis, clubbing, or pedal edema. NEUROLOGICAL: Gross neurological examination did not reveal any focal deficits. SKIN: No rashes. Assessment: -Atrial fibrillation with rapid ventricular rate: Cardizem discontinued, now on amiodarone drip -History of paroxysmal atrial fibrillation -Mild acute congestive heart failure EF is unknown, 2-D echo pending -Hyperlipidemia -DVT prophylaxis: On anticoagulation as mentioned above -GI prophylaxis -Full code Plan: Patient has been transitioned from the Cardizem to amiodarone drip per cardiology and also being started on IV Lasix twice daily patient continues to report shortness of breath. Patient's rate not controlled and discussing plans of possible cardioversion if amiodarone doesn't help and this is scheduled tentatively for tomorrow morning. Recommend follow-up labs to monitor kidney functions and electrolytes and replace electrolytes per protocol Encouraged increased activity as tolerated We'll discuss with cardiology about discharge planning and possible need for cardioversion if patient does not convert to sinus rhythm Possible discharge in the next 24-48 hours The impression and plan of care has been dictated by Elina Stockton, Nurse Practitioner as directed. Dr. Dick MD I have performed a history and examination and MDM of this patient, discussed the same with the dictator, and agree with the dictator's assessment and plan as written ,documented as a scribe. Based on total visit time, I have performed more than 50% of the visit. Objective - Vital Signs Vital signs: Vital Signs Temp 97.8 F 10/08/22 08:00 Pulse 76 10/08/22 08:14 Resp 16 10/08/22 08:00 BP 135/95 10/08/22 08:00 Pulse Ox 94 L 10/08/22 08:18 FiO2 21 10/07/22 21:35 Intake & Output 10/07/22 10/08/22 10/08/22 18:59 06:59 18:59 Intake Total 333 122 Output Total 3000 1400 Balance -3808 -7959 Weight 86.183 kg 87 kg Intake: Intake, IV Titration 3 122 Amount Diltiazem 125 mg In 3 122 Sodium Chloride 0.9% 100 ml @ 5 MG/HR 5 mls/hr IV .Q24H [facility] Rx#:[id number] Oral 330 Output: Urine 3000 1400 Other: Voiding Method Toilet # Voids 2 - Labs CBC & Chem 7: 10/07/22 06:50 10/08/22 11:00
[2022-10-09] MEDS: AMIODARONE 450 MG in DEXTROSE 5% IN WATER 250 ML IV SCH ×2 (05:52)
[2022-10-09 07:33] LABS: African American GFR (CKD) >90 (>60 ml/min/1.73 sqM); Anion Gap 6 mmol/L; Blood Urea Nitrogen 17 mg/dL (9-20); Calcium 9.1 mg/dL (8.4-10.2); Carbon Dioxide 27 mmol/L (22-30); Chloride 104 mmol/L (98-107); Glucose 95 mg/dL (74-99); Magnesium 2.3 mg/dL (1.6-2.3); Non-African American GFR(CKD) 86 (>60 ml/min/1.73 sqM); Potassium 4.1 mmol/L (3.5-5.1); Sodium 137 mmol/L (137-145)
[2022-10-09] MEDS: ASPIRIN 81 MG PO SCH (08:30)
[2022-10-09] MEDS: FUROSEMIDE 10 MG/ML 4 ML VIAL IV SCH (08:30)
[2022-10-09] MEDS: METOPROLOL TARTRATE 50 MG TAB PO SCH (08:30)
[2022-10-09] MEDS ORDERED: IV FLUID CONTINUATION 1,000 ML IV ONE ×2 (09:50)
[2022-10-09] MEDS ORDERED: PROPOFOL 10 MG/ML 20 ML VIAL IV ONE (10:04)
[2022-10-09] MEDS ORDERED: LIDOCAINE 2% INJ 20 MG/ML (2 ML VIAL) ONE (10:04)
[2022-10-09 10:55] VITALS: RESP 16
--- NOTE | 2022-10-09 11:13 | CE ---
CARDIAC ELECTROPHYSIOLOGY REPORT PROCEDURE PERFORMED: Electrical cardioversion. CLINICAL INFORMATION: Mr. Humberto Reynolds is a 66-year-old gentleman with a history of hypertension, paroxysmal atrial fibrillation, who came into the hospital with palpitations, was found to be in atrial fibrillation, also had shortness of breath. We did rate control. He was already on Xarelto 20 mg daily. After controlling the rate and placing him on IV amiodarone, I advised electrical cardioversion because of persistent atrial fibrillation. The risks, benefits, options, rationale were explained. The patient and understood all details and wished to proceed with the procedure. PROCEDURE NOTE: Under the influence of [id number] intravenous anesthetic agent with the attendance of the anesthesiologist, an initial shock of 120 joules was given with anterior and posterior patches. The patient converted to sinus rhythm, remained in sinus rhythm for 30 seconds and then went back into atrial fib with a moderately rapid rate. A repeat shock was given at 200 joules. He then converted to sinus rhythm. Remained hemodynamically stable. Neurologically intact. This was a successful electrical cardioversion. The patient will be discharged in 24 hours. He will be on amiodarone 200 mg b.i.d., metoprolol tartrate 25 mg b.i.d., which is a reduction in the dose. The details were discussed with the patient as well as his . This was a successful electrical cardioversion. MMODL / IJN: [id number] /
[2022-10-09] MEDS: AMIODARONE 200 MG TAB PO SCH ×2 (11:38→20:11)
--- NOTE | 2022-10-09 12:24 | P.PN ---
Subjective Progress Note Date: 10/09/22 HISTORY OF PRESENT ILLNESS: This is a 66-year-old male with a past medical history significant for paroxysmal atrial fibrillation and hyperlipidemia. Patient follows with a varnisher in [facility], Dr. Stubbs. We have been asked to see the patient in consultation for afib with RVR. Patient examined at the bedside. Patient states he has been feeling short of breath for the past week. He states he went to see his PCP who diagnosed him with a sinus infection. He was prescr ibed steroids at that time. Patient presented to the hospital with continued shortness of breath and lower extremity edema. Patient was found to be in afib with RVR. Patient states last time he was in atrial fibrillation was brought to years ago to his knowledge. He denies any chest pain or pressure. At the time of examination, he remains in atrial fibrillation with a heart rate around 105. * EKG reveals atrial fibrillation with RVR * Chest xray bibasilar airspace opacities. Correlate for pneumonia. * Laboratory data: WBC 6.3. Hemoglobin 13.8. Platelet count 140. Sodium 135. Potassium 4.0. B UN 20. Creatinine 0.80. Troponin 0.026. ProBNP 2059. * Current home cardiac medications include Xarelto 20mg daily, Lipitor 40 mg at night, and metoprolol succinate 25 mg daily 10/08/2022 Patient examined this morning at the bedside. Patient denies chest pain or pressure. He reports shortness of breath. He did receive a dose of IV Lasix this morning. He remains in atrial fibrillation with uncontrolled ventricular rates. He remains on IV Cardizem. Echocardiogram completed revealing ejection fraction 45-50%, mild global hypokinesis, mild TR, and mild MR 10/09/2022 Patient examined this morning at the bedside. Patient denies chest pain or pressure. He denies shortness of breath. He remains in atrial fibrillation with uncontrolled ventricular rates. PHYSICAL EXAM: VITAL SIGNS: Reviewed. GENERAL: Well-developed in no acute distress. HEENT: Head is normocephalic. Pupils are equal, round. Sclerae anicteric. Mucous membranes of the mouth are moist. Neck supple. No JVD or thyromegaly LUNGS: Respirations even and unlabored. Lungs diminished with crackles at the bases HEART: Irregular rate and rhythm. S1 and S2 heard. ABDOMEN: Soft. Nondistended. Nontender. EXTREMITIES: Normal range of motion. No clubbing or cyanosis. Peripheral pulses intact. No lower extremity edema NEUROLOGIC: Awake and alert. Oriented x 3. ASSESSMENT: Shortness of breath Paroxysmal atrial fibrillation with RVR Mild acute heart failure, with mildly reduced EF 4550%, may be secondary to A. fib with RVR History of hyperlipidemia PLAN: Continue current cardiac medications Add amiodarone 200 mg twice a day Continue telemetry monitoring Patient to undergo cardioversion today with Dr. Mark Further recommendations pending patient's course Nurse practitioner note has been reviewed by physician. Signing provider agrees with the documented findings, assessment, and plan of care. Objective - Vital Signs Vital signs: Vital Signs Temp 97.9 F 10/09/22 08:00 Pulse 60 10/09/22 12:00 Resp 16 10/09/22 12:00 BP 118/74 10/09/22 12:00 Pulse Ox 95 10/09/22 12:00 FiO2 21 10/07/22 21:35 Intake & Output 10/08/22 10/09/22 10/09/22 18:59 06:59 18:59 Intake Total 1336 773.338 50 Output Total 2800 3300 Balance -1464 -2526.662 50 Weight 81.8 kg Intake: IV 50 Intake, IV Titration 100 233.338 Amount Amiodarone 450 mg In 233.338 Dextrose 5% in Water 250 ml @ 0.5 MG/MIN 16.667 mls/hr IV .Q15H [facility] Rx#: [id number] Dextrose 5% in Water 100 100 ml @ 618 mls/hr IV .Q10M [facility] with Amiodarone 150 mg Rx#:[id number] Oral 1236 540 0 Output: Urine 2800 3300 Other: Voiding Method Toilet Toilet # Bowel Movements 0 - Labs CBC & Chem 7: 10/07/22 06:50 10/09/22 06:19 Labs: Microbiology - Last 24 Hours (Table) 10/08/22 15:36 Gram Stain - Preliminary Sputum 10/07/22 08:15 Blood Culture - Preliminary Blood 10/07/22 08:30 Blood Culture - Preliminary Blood
[2022-10-09] MEDS: METOPROLOL TARTRATE 25 MG TAB PO SCH ×2 (16:55→21:50)
[2022-10-09] MEDS: RIVAROXABAN 20 MG TAB PO SCH (16:57)
[2022-10-09] MEDS: ATORVASTATIN 40 MG TAB PO SCH (20:11)
[2022-10-09] MEDS: LOSARTAN 25 MG TAB PO SCH (20:11)
--- NOTE | 2022-10-10 06:00 | P.PN ---
Subjective Progress Note Date: 10/09/22 66-year-old male with known history of proximal atrial fibrillation post chemotherapy for CLL which is in remission. Complaints of shortness of breath for about a week patient is found to be in atrial fibrillation. Patient was diagnosed with sinus infection was given a dose of steroids which made him to have a bilateral lower x-ray edema. Patient is complaining of orthopnea and paroxysmal nocturnal dyspnea patient has elevated BNP of 2000 was given a dose of Lasix after which patient clinically euvolemic at this time. Patient takes 25 mg of metoprolol presently on Cardizem 10, patient was given 50 mg twice a day of metoprolol and patient is on Xarelto at home which is being continued. Chest x-ray showed bilateral infiltrate was suspicious for pneumonia although clinically patient doesn't have pneumonia and a pro-calcitonin level is not elevated, patient doesn't have any leukocytosis. Patient had symptoms of gastritis after the prednisone 10/08/2022 Patient is seen and evaluated in follow-up with cardiology following and was on Cardizem drip continue to have elevated rates and evaluated by cardiology again this morning being started on amiodarone drip. Plan is for possible card ioversion patient does not convert in a.m. Patient denies chest pain or worsening palpitations. Patient reports he still feels short of breath with exertion although is maintaining oxygen saturations above 90% on room air. Encouraged to increase activity as tolerated. Patient reports to tolerating diet with no reported nausea or vomiting noted. Patient also being transitioned to IV Lasix twice daily per cardiology and would recommend repeat labs to monitor kidney functions and electrolytes. 10/09/2022 Patient is seen and evaluated in follow-up today status post cardioversion. Patient was shocked twice and has converted currently bradycardia. Cardiology following recommending monitoring and continued telemetry overnight and has been transitioned oral amiodarone along with metoprolol. Patient is afebrile with no reports of chest pain or shortness of breath. Patient to resume diet post procedure with no reported nausea or vomiting noted. Review of systems: Constitutional: No reports of fatigue, fever, or chills Cardiovascular: No reports of chest pain or palpitations Respiratory: reports of shortness of breath, no cough GI: No reports of nausea, vomiting, or diarrhea : No reports of dysuria or retention Neurovascular: No reports of weakness or numbness All medications have been reviewed PHYSICAL EXAMINATION: GENERAL: The patient is alert and oriented x3, not in any acute distress. Well developed, well nourished. HEENT: Pupils are round and equally reacting to light. EOMI. No scleral icterus. No conjunctival pallor. Normocephalic, atraumatic. No pharyngeal erythema. No thyromegaly. CARDIOVASCULAR: S1 and S2 muffled, irregular PULMONARY: Chest is clear to auscultation, no wheezing or crackles. ABDOMEN: Soft, nontender, nondistended, normoactive bowel sounds. No palpable organomegaly. MUSCULOSKELETAL: No joint swelling or deformity. EXTREMITIES: No cyanosis, clubbing, or pedal edema. NEUROLOGICAL: Gross neurological examination did not reveal any focal deficits. SKIN: No rashes. Assessment: -Atrial fibrillation with rapid ventricular rate, currently bradycardic status post cardioversion with 2 shocks today -History of paroxysmal atrial fibrillation -Mild acute congestive heart failure EF is unknown, 2-D echo pending -Hyperlipidemia -DVT prophylaxis: On anticoagulation as mentioned above -GI prophylaxis -Full code Plan: Patient has been transitioned to oral amiodarone in addition to metoprolol and is status post cardioversion with 2 shocks today. Cardiology recommending monitoring overnight and continue telemetry with possible discharge planning in the next 24 hours Lower extremity edema has improved and IV Lasix discontinued Encouraged to increase activity as tolerated We'll discuss with cardiology for possible discharge in the next 24 hours The impression and plan of care has been dictated by Elina Stockton, Nurse Practitioner as directed. Dr. Dick MD I have performed a history and examination and MDM of this patient, discussed the same with the dictator, and agree with the dictator's assessment and plan as written ,documented as a scribe. Based on total visit time, I have performed more than 50% of the visit. Objective - Vital Signs Vital signs: Vital Signs Temp 97.9 F 10/09/22 08:00 Pulse 54 L 10/09/22 10:54 Resp 16 10/09/22 10:54 BP 112/71 10/09/22 10:54 Pulse Ox 94 L 10/09/22 10:54 FiO2 21 10/07/22 21:35 Intake & Output 10/08/22 10/09/22 10/09/22 18:59 06:59 18:59 Intake Total 1336 773.338 50 Output Total 2800 3300 Balance -6939 -8991.198 50 Weight 81.8 kg Intake: IV 50 Intake, IV Titration 100 233.338 Amount Amiodarone 450 mg In 233.338 Dextrose 5% in Water 250 ml @ 0.5 MG/MIN 16.667 mls/hr IV .Q15H [facility] Rx#: [id number] Dextrose 5% in Water 100 100 ml @ 618 mls/hr IV .Q10M ONE with Amiodarone 150 mg Rx#:[id number] Oral 1236 540 0 Output: Urine 2800 3300 Other: Voiding Method Toilet Toilet # Bowel Movements 0 - Labs CBC & Chem 7: 10/07/22 06:50 10/09/22 06:19 Labs: Abnormal Lab Results - Last 24 Hours (Table) 10/08/22 Range/Units 11:00 Glucose 114 H (74-99) mg/dL Magnesium 2.4 H (1.6-2.3) mg/dL Microbiology - Last 24 Hours (Table) 10/08/22 15:36 Gram Stain - Preliminary Sputum 10/07/22 08:15 Blood Culture - Preliminary Blood 10/07/22 08:30 Blood Culture - Preliminary Blood
[2022-10-10] MEDS: ASPIRIN 81 MG PO SCH (06:26)
[2022-10-10] MEDS: METOPROLOL TARTRATE 25 MG TAB PO SCH (06:26)
[2022-10-10] MEDS: AMIODARONE 200 MG TAB PO SCH (06:26)
[2022-10-10 08:51] VITALS: BP 131/78; PULSE 120; TEMP 98.3
[2022-10-10 10:48] LABS: African American GFR (CKD) >90 (>60 ml/min/1.73 sqM); Anion Gap 5 mmol/L; Blood Urea Nitrogen 19 mg/dL (9-20); Calcium 9.4 mg/dL (8.4-10.2); Carbon Dioxide 25 mmol/L (22-30); Chloride 105 mmol/L (98-107); Glucose 89 mg/dL (74-99); Non-African American GFR(CKD) 89 (>60 ml/min/1.73 sqM); Potassium 4.7 mmol/L (3.5-5.1); Sodium 135 mmol/L (137-145)
--- NOTE | 2022-10-10 13:08 | P.PN ---
Subjective HISTORY OF PRESENT ILLNESS: This is a 66-year-old male with a past medical history significant for paroxysmal atrial fibrillation and hyperlipidemia. Patient follows with a gynecologist in [facility], Dr. Stubbs. We have been asked to see the patient in consultation for afib with RVR. Patient examined at the bedside. Patient states he has been feeling short of breath for the past week. He states he went to see his PCP who diagnosed him with a sinus infection. He was prescribed steroids at that time. Patient presented to the hospital with continued shortness of breath and lower extremity edema. Patient was found to be in afib with RVR. Patient states last time he was in atrial fibrillation was brought to years ago to his knowledge. He denies any chest pain or pressure. At the time of examination, he remains in atrial fibrillation with a heart rate around 105. * EKG reveals atrial fibrillation with RVR * Chest xray bibasilar airspace opacities. Correlate for pneumonia. * Laboratory data: WBC 6.3. Hemoglobin 13.8. Platelet count 140. Sodium 135. Potassium 4.0. B UN 20. Creatinine 0.80. Troponin 0.026. ProBNP 2059. * Current home cardiac medications include Xarelto 20mg daily, Lipitor 40 mg at night, and metoprolol succinate 25 mg daily 10/08/2022 Patient examined this morning at the bedside. Patient denies chest pain or pressure. He reports shortness of breath. He did receive a dose of IV Lasix this morning. He remains in atrial fibrillation with uncontrolled ventricular rates. He remains on IV Cardizem. Echocardiogram completed revealing ejection fraction 45-50%, mild global hypokinesis, mild TR, and mild MR 10/09/2022 Patient examined this morning at the bedside. Patient denies chest pain or pressure. He denies shortness of breath. He remains in atrial fibrillation with uncontrolled ventricular rates. 10/10/2022 Patient is status post cardioversion yesterday Dr. Mark. Patient examined this morning at the bedside. Patient denies chest pain or pressure. He denies shortness of breath. Vital signs are stable. Patient remains in sinus rhythm with a heart rate in the 50s. PHYSICAL EXAM: VITAL SIGNS: Reviewed. GENERAL: Well-developed in no acute distress. HEENT: Head is normocephalic. Pupils are equal, round. Sclerae anicteric. Mucous membranes of the mouth are moist. Neck supple. No JVD or thyromegaly LUNGS: Respirations even and unlabored. Lungs clear to auscultation HEART: Bradycardic. Regular rate and rhythm. S1 and S2 heard. ABDOMEN: Soft. Nondistended. Nontender. EXTREMITIES: Normal range of motion. No clubbing or cyanosis. Peripheral pulses intact. No lower extremity edema NEUROLOGIC: Awake and alert. Oriented x 3. ASSESSMENT: Shortness of breath Paroxysmal atrial fibrillation with RVR, status post cardioversion Mild acute heart failure, with mildly reduced EF 4550%, may be secondary to A. fib with RVR History of hyperlipidemia PLAN: Decrease amiodarone to 200 mg daily Decrease metoprolol tartrate to 25 mg twice a day Continue additional cardiac medications Will repeat echocardiogram in 4-6 weeks in the office to evaluate LV function Patient is stable for discharge home today He is to follow up in the office with Dr. Mark in 2 weeks. Nurse practitioner note has been reviewed by physician. Signing provider agrees with the documented findings, assessment, and plan of care. Objective - Vital Signs Vital signs: Vital Signs Temp 98.3 F 10/10/22 08:44 Pulse 120 H 10/10/22 08:44 Resp 16 10/10/22 08:44 BP 131/78 10/10/22 08:44 Pulse Ox 96 10/10/22 08:44 FiO2 21 10/07/22 21:35 Intake & Output 10/09/22 10/10/22 10/10/22 18:59 06:59 18:59 Intake Total 530 598 Output Total 1950 1825 Balance -1420 -1825 598 Weight 80.7 kg Intake: IV 50 Oral 480 598 Output: Urine 1950 1825 Other: Voiding Method Toilet Toilet Toilet # Voids 4 - Labs CBC & Chem 7: 10/07/22 06:50 10/10/22 09:23 Labs: Abnormal Lab Results - Last 24 Hours (Table) 10/10/22 Range/Units 09:23 Sodium 135 L (137-145) mmol/L Microbiology - Last 24 Hours (Table) 10/08/22 15:36 Gram Stain - Final Sputum Sputum Culture - Final 10/07/22 08:15 Blood Culture - Preliminary Blood 10/07/22 08:30 Blood Culture - Preliminary Blood
[2022-10-10] MEDS ORDERED: METOPROLOL TARTRATE 25 MG TAB PO SCH (21:00)
[2022-10-11] MEDS ORDERED: AMIODARONE 200 MG TAB PO SCH (09:00)
--- NOTE | 2022-10-11 20:06 | P.DS ---
Providers Date of admission: 10/07/22 08:05 Expected date of discharge: 10/10/22 Attending physician: Addy Smith MD Consults: 10/07/22 08:21 Consult Physician Urgent Consulting Provider: Corbin Fleming Consult Reason/Comments: afib rvr, chf? Do you want consulting provider notified?: Yes Primary care physician: Sung Atwood Hospital Course: Final diagnosis -Atrial fibrillation with rapid ventricular rate, currently bradycardic status post cardioversion with 2 shocks -History of paroxysmal atrial fibrillation -Mild acute congestive heart failure with diastolic dysfunction, EF is 45-50% -Hyperlipidemia -DVT prophylaxis -GI prophylaxis -Full code Discharge disposition Patient is being discharged in a stable condition with guarded prognosis to home. Patient will follow-up with Dr. Atwood in the outpatient setting upon discharge. Patient is to continue with medications as prescribed below and outpatient follow-up with cardiology as scheduled. Total time taken is greater than 35 minutes. Hospital course This is a 66-year-old male who was recently admitted with shortness of breath and palpitations found to be in atrial fibrillation with RVR. Patient continued on Cardizem and continued in RVR and was transitioned to amiodarone requiring cardioversion. Patient had 2 shocks and currently maintaining controlled rate. Patient will continue with current medications as mentioned below and close outpatient follow-up with cardiology. Patient has been cleared per cardiology for discharge today. Please refer to cardiology notes for further HPI. Patient reports to feeling well and extremely anxious to go home. Currently no reports of chest pain, shortness of breath, or palpitations. Patient is afebrile. No reports of nausea or vomiting and patient is tolerating diet. Patient will be discharged home today. Physical exam: Gen: This is a 66-year-old male who is awake, alert and oriented 3, well- developed, well-nourished HEENT: Head is atraumatic, normocephalic. Pupils equal, round. Sclerae is anicteric. NECK: Supple. No JVD. No lymphadenopathy. No thyromegaly. LUNGS: Clear to auscultation. No wheezes or rhonchi. No intercostal retractions. HEART: S1, S2 are muffled, irregular ABDOMEN: Soft. Bowel sounds are present. No masses. No tenderness. EXTREMITIES: No pedal edema. No calf tenderness. NEUROLOGICAL: Patient is awake, alert and oriented x3. Cranial nerves 2 through 12 are grossly intact. Please refer to medication reconciliation sheet for a list of medications. The impression and plan of care has been dictated by Elina Stockton, Nurse Practitioner as directed. MD Joann I have performed a history and examination and MDM of this patient, discussed the same with the dictator, and agree with the dictator's assessment and plan as written ,documented as a scribe. Based on total visit time, I have performed more than 50% of the visit. Patient Condition at Discharge: Fair Plan - Discharge Summary Discharge Rx Participant: No New Discharge Prescriptions: New Amiodarone [Cordarone] 200 mg PO DAILY #30 tab Losartan [Cozaar] 25 mg PO HS #30 tab Metoprolol Tartrate [Lopressor] 25 mg PO BID #60 tab Rivaroxaban [Xarelto] 20 mg PO W/SUPPER #30 tab Continue Atorvastatin [Lipitor] 40 mg PO HS Vitamin B Complex 1 cap PO DAILY Aspirin [Adult Low Dose Aspirin EC] 81 mg PO DAILY Glucosamine/Chondro Gaytan A [Cosamin Ds Tablet] 1 tab PO HS [place]-3/Dha/Epa/Fish Oil [Fish Oil 1,000 mg Softgel] 1 cap PO HS Multivitamins, Thera [Multivitamin (formulary)] 1 tab PO HS Cetirizine HCl [Zyrtec] 10 mg PO DAILY Albuterol Sulfate [Albuterol Sulfate Hfa] 2 puff INHALATION RT-QID PRN PRN Reason: Shortness Of Breath Discontinued predniSONE See Taper PO DIRECTED Metoprolol Succinate (ER) [Toprol Xl] 25 mg PO DAILY Discharge Medication List Aspirin [Adult Low Dose Aspirin EC] 81 mg PO DAILY 10/23/16 [History] Atorvastatin [Lipitor] 40 mg PO HS 10/23/16 [History] Vitamin B Complex 1 cap PO DAILY 10/23/16 [History] Albuterol Sulfate [Albuterol Sulfate Hfa] 2 puff INHALATION RT-QID PRN 10/07/22 [History] Cetirizine HCl [Zyrtec] 10 mg PO DAILY 10/07/22 [History] Glucosamine/Chondro Gaytan A [Cosamin Ds Tablet] 1 tab PO HS 10/07/22 [History] Multivitamins, Thera [Multivitamin (formulary)] 1 tab PO HS 10/07/22 [History] [place]-3/Dha/Epa/Fish Oil [Fish Oil 1,000 mg Softgel] 1 cap PO HS 10/07/22 [History] Amiodarone [Cordarone] 200 mg PO DAILY #30 tab 10/10/22 [Rx] Losartan [Cozaar] 25 mg PO HS #30 tab 10/10/22 [Rx] Metoprolol Tartrate [Lopressor] 25 mg PO BID #60 tab 10/10/22 [Rx] Rivaroxaban [Xarelto] 20 mg PO W/SUPPER #30 tab 10/10/22 [Rx] Follow up Appointment(s)/Referral(s): Kacey Mark MD [STAFF PHYSICIAN] - 2 Weeks (office will call with appt) Sung Atwood DO [Primary Care Provider] - 1-2 days Patient Instructions/Handouts: A-fib (Atrial Fibrillation) (DC) Activity/Diet/Wound Care/Special Instructions: Activity Limited until follow-up Follow-up with primary care provider on discharge Follow-up cardiology outpatient Continue taking medications as prescribed Discharge Disposition: HOME SELF-CARE
== END 2022-10-10 14:18 | disposition home or self-care (01) | DRG 308 ==
LOC: EC 06:08 → 3SCARD 08:05
PROVIDERS: ADMIT Internal Medicine; ATTEND Internal Medicine
PROC: 5A2204Z Restoration of Cardiac Rhythm, Single (ICD-10-PCS; principal; 2022-10-09 10:00)
DX: I48.0 Paroxysmal atrial fibrillation (principal); I50.21 Acute systolic (congestive) heart failure; C91.11 Chronic lymphocytic leukemia of B-cell type in remission; T38.0X5A Adverse effect of glucocorticoids and synthetic analogues, initial encounter; I11.0 Hypertensive heart disease with heart failure; E78.5 Hyperlipidemia, unspecified; K29.70 Gastritis, unspecified, without bleeding; Z20.822 Contact with and (suspected) exposure to COVID-19; Z92.21 Personal history of antineoplastic chemotherapy; Z79.01 Long term (current) use of anticoagulants; Z79.899 Other long term (current) drug therapy; Z79.82 Long term (current) use of aspirin
CPT/HCPCS: 36415; 71046; 80048; 80053; 81003; 83605; 83735; 83880; 84145; 84484; 85025; 85610; 85730; 87040; 87070; 87205; 87449; 87635; 92960; 93005; 93306; 94640; 94760; 96365; 96366; 96368; 96375; 99291

== ENCOUNTER → 2023-07-14 | Outpatient (CLI) | payer MEDICARE ==
[2023-07-14 15:00] LABS: Blood Urea Nitrogen 16.9 mg/dL (9.0-27.0); Carbon Dioxide 25.4 mmol/L (21.6-31.8); Chloride 105 mmol/L (96-109); Potassium 4.5 mmol/L (3.5-5.5); Sodium 141 mmol/L (135-145)
[2023-07-14 15:05] LABS: HCT 42.2 % (39.6-50.0); HGB 14.3 g/dL (13.0-17.0); MCH 32.9 pg (27.0-32.0); MCHC 33.9 g/dL (32.0-37.0); Mean Platelet Volume 10.1 FL (9.5-12.2); NRBC Per 100 WBC 0 X 10*3/uL (0.00-0.01); Platelet Count 167 X 10*3/uL (140-440); RBC 4.35 X 10*6/uL (4.40-5.60); WBC 4.32 X 10*3/uL (4.50-10.00)
== END | disposition home or self-care (01) ==
LOC: LABPAT 11:26
PROVIDERS: ATTEND Internal Medicine Interventional Cardiology
DX: Z01.812 Encounter for preprocedural laboratory examination (principal)
CPT/HCPCS: 80051; 82565; 84520; 85027

== ENCOUNTER 2023-07-18 06:19 | Day surgery (SDC) | payer MEDICARE ==
[2023-07-16 14:17] VITALS: BMI 26.4
[2023-07-18] MEDS ORDERED: SODIUM CHLORIDE 0.9% 1,000 ML in EMPTY BAG 1 BAG IV SCH (06:42)
[2023-07-18] MEDS ORDERED: ALPRAZolam 0.25 MG TAB PO PRN (06:42)
[2023-07-18] MEDS ORDERED: NITROGLYCERIN SL TABS 0.4 MG TAB SUBLINGUAL PRN (06:42)
[2023-07-18] MEDS ORDERED: ASPIRIN 325 MG TAB PO STA (06:42)
[2023-07-18] MEDS ORDERED: ATORVASTATIN 80 MG TAB PO STA (06:42)
[2023-07-18] MEDS ORDERED: ALPRAZolam 0.5 MG TAB PO PRN (06:42)
[2023-07-18] MEDS: SODIUM CHLORIDE 0.9% 1,000 ML IV ONE (07:13)
[2023-07-18] MEDS ORDERED: VERAPAMIL 2.5 MG/ML 2 ML AMP ONE (07:22)
[2023-07-18] MEDS ORDERED: LIDOCAINE 1% INJ 10MG/ML (20 ML MDV) ONE (07:22)
[2023-07-18 07:26] VITALS: RESP 16; TEMP 97.6
[2023-07-18] MEDS ORDERED: HEPARIN SODIUM 1,000 UN/ML (10ML VL) ONE (07:28)
[2023-07-18] MEDS: MIDAZOLAM 2 MG/2 ML VIAL IVP ONE (07:31)
[2023-07-18] MEDS: LIDOCAINE 1% INJ 10MG/ML (20 ML MDV) SQ ONE (07:36)
[2023-07-18] MEDS: VERAPAMIL SYRINGE (5 MG/10 ML) INTRAARTER ONE (07:37)
[2023-07-18] MEDS: HEPARIN SODIUM 1,000 UN/ML (10ML VL) IV ONE (07:41)
[2023-07-18] MEDS: IOPAMIDOL-370 100ML BTL INJ ONE (07:43)
[2023-07-18] MEDS ORDERED: SODIUM CHLORIDE 0.9% 1,000 ML IV SCH (08:03)
--- NOTE | 2023-07-18 08:09 | P.CARDCATH ---
Date of Procedure: 07/18/23 Description of Procedure: History: Patient was referred for cardiac catheterization to evaluate for CAD. This is a 67-year-old gentleman with paroxysmal atrial fibrillation with previous electrical cardioversion that was initially successful and he went back into atrial fibrillation remains in and out. He has developed LV dysfunction which could be related to atrial fibrillation but because of cardiomyopathy he was advised to have coronary angiography to rule out obstructive CAD. He has hypertension and hyperlipidemia as well. He had a melanoma that was resected on 03 July. He is currently on Xarelto which was held for 36 hours before the procedure. Risks benefits options rationale were explained. He understood all details and wished to proceed with the procedure Procedure Details: The risks, benefits, complications, treatment options, and expected outcomes were discussed with the patient. The patient and/or family concurred with the proposed plan, giving informed consent. Patient was brought to the rags laborer after IV hydration was begun and oral premedication was given. Patient was further sedated with midazolam. Patient was prepped and draped in the usual manner. Under strict aseptic precautions and local anesthesia a 6 [place] introducer was placed in the right radial artery. Using a JL 3/5 and a JR 4/0 catheters I performed coronary angiography and the same JR catheter was used to check LV pressures and LV gram was not performed. After the procedure was completed the sheaths and catheters were all removed. Hemostasis was achieved with TR band. Saturation in the fingers of the right hand was about 97%. Moderate conscious sedation time was 20 minutes. Patient was administered Versed. Patient's oxygen saturation hemodynamics and EKG were monitored closely. Findings: Hemodynamics: The left ventricle end-diastolic pressure was about 10 mmHg without any gradient across aortic valve Left Main: Normal no significant disease bifurcates into LAD and circumflex LAD: Good caliber good distribution vessel it gives off a large diagonal branch proximally and a second large diagonal branch in the midportion several septal branches curves over the apex to supply the inferoapical portion of the left ventricle. There are minor irregularities no significant disease in the entire LAD system CIRC: Nondominant no significant disease gives off a single obtuse marginal that runs laterally. RCA: Dominant vessel distally bifurcates into a PLV and PDA. The PLV has about a 50% narrowing but PDA is free of significant disease. Proximal and mid RCA have no significant disease. Closure Device: TR band Complications: None Estimated Blood Loss: Minimal Impression: Single-vessel CAD 50% disease involving the PLV branch of dominant RCA. Normal filling pressures no gradient right dominant system no significant disease in the left system Pre Procedure Diagnosis: Cardiomyopathy Final Post Procedure Diagnosis: Nonischemic cardiomyopathy Recommendation: Continued medical therapy with risk factor modification Complications: None; patient tolerated the procedure well. Disposition: ESU - hemodynamically stable. Condition: Stable Discharge Disposition: Discharge patient home later on today. He will be seen in the office in 1-2 weekS.
[2023-07-18 12:34] VITALS: BP 125/84; PULSE 82
[2023-07-18] MEDS ORDERED: LOSARTAN 25 MG TAB PO SCH (21:00)
[2023-07-20] MEDS ORDERED: METOPROLOL TARTRATE 25 MG TAB PO SCH (09:00)
== END 2023-07-18 13:10 | disposition home or self-care (01) ==
LOC: CATHCVL 06:19
PROVIDERS: ATTEND Internal Medicine Interventional Cardiology
DX: I42.0 Dilated cardiomyopathy (principal); E78.5 Hyperlipidemia, unspecified; I10 Essential (primary) hypertension; I25.10 Atherosclerotic heart disease of native coronary artery without angina pectoris; I48.0 Paroxysmal atrial fibrillation; Z79.01 Long term (current) use of anticoagulants
CPT/HCPCS: 93458; C1769; C1894; J2250; J2001; J1644; Q9967

== ENCOUNTER 2023-12-21 16:04 | Emergency (ER) | payer MEDICARE ==
--- NOTE | 2023-12-21 17:08 | XR ---
EXAMINATION TYPE: XR chest 2V DATE OF EXAM: 12/21/2023 5:03 PM CLINICAL INDICATION: Male, 68 years old with history of difficulty breathing; [facility] COMPARISON: Chest radiographs from 10/08/2022 TECHNIQUE: XR chest 2V Frontal view of the chest. FINDINGS: Lungs/Pleura: There is flattening of the diaphragm with increased lucency of the lungs. No evidence o f pneumothorax, pleural effusion or focal consolidation. Pulmonary vascularity: Unremarkable. Heart/mediastinum: Cardiomediastinal silhouette is unremarkable. Musculoskeletal: No acute osseous pathology. Other findings: None IMPRESSION: 1. No acute cardiopulmonary disease process. 2. COPD changes. [facility], , 12/21/2023 5:06 PM
[2023-12-21 18:14] LABS: Basophils % (A) 1 %; Eosinophils # (A) 0.1 k/uL (0-0.7); Eosinophils % (A) 3 %; HCT 43.8 % (39.0-53.0); HGB 14.1 gm/dL (13.0-17.5); Lymphocytes # (A) 0.9 k/uL (1.0-4.8); Lymphocytes % (A) 19 %; MCH 32.4 pg (25.0-35.0); MCHC 32.1 g/dL (31.0-37.0); Macrocytosis Slight; Mean Platelet Volume 8.3; Monocytes # (A) 0.3 k/uL (0-1.0); Monocytes % (A) 6 %; Neutrophils # (A) 3.2 k/uL (1.3-7.7); Neutrophils % (A) 68 %; Platelet Count 146 k/uL (150-450); RBC 4.34 m/uL (4.30-5.90); RDW 13.6 % (11.5-15.5); WBC 4.6 k/uL (3.8-10.6)
[2023-12-21 18:22] LABS: INR 1.1 (<1.2); Partial Thromboplastin Time 24.6 sec (22.0-30.0); Prothrombin Time 11.4 sec (10.0-12.5)
[2023-12-21 18:30] LABS: ALT 87 U/L (4-49); AST 58 U/L (17-59); African American GFR (CKD) 73 (>60 ml/min/1.73 sqM); Alkaline Phosphatase 60 U/L (38-126); Anion Gap 5 mmol/L; Blood Urea Nitrogen 25 mg/dL (9-20); Calcium 9.6 mg/dL (8.4-10.2); Carbon Dioxide 27 mmol/L (22-30); Chloride 105 mmol/L (98-107); Glucose 92 mg/dL (74-99); Non-African American GFR(CKD) 63 (>60 ml/min/1.73 sqM); Potassium 4.7 mmol/L (3.5-5.1); Sodium 137 mmol/L (137-145); Total Bilirubin 0.7 mg/dL (0.2-1.3); Total Protein 5.9 g/dL (6.3-8.2)
[2023-12-21 18:37] LABS: NT-Pro-B-Type Natriuretic Pept 4450 pg/mL
[2023-12-21] MEDS: FUROSEMIDE 10 MG/ML 4 ML VIAL IV STA (19:41)
--- NOTE | 2023-12-21 19:43 | ED ---
General Adult HPI - General Chief complaint: Shortness of Breath Stated complaint: Chest Pain Time Seen by Provider: 12/21/23 16:40 Source: patient, RN notes reviewed, old records reviewed Mode of arrival: ambulatory Limitations: no limitations - History of Present Illness Initial comments: Is a 68-year-old male who presents to the emergency department complaining of difficulty breathing and cough for the last 5 weeks. Patient states this started when he went to [place] 5 weeks ago. Patient also states the edema in his legs is considerably worse. Patient denies any chest pain or palpitations. Patient has a history of smoking or any heart disease except for atrial fibrillation. Patient states she was post to have an ablation but he has not sagastume d it yet. Patient denies any recent fevers or chills. Patient [place] any abdominal pain - Related Data Home Medications Medication Instructions Recorded Confirmed Atorvastatin [Lipitor] 40 mg PO HS 10/23/16 12/21/23 Multivitamins, Thera [Multivitamin 1 tab PO HS 10/07/22 12/21/23 (formulary)] Metoprolol Succinate (ER) [Toprol 25 mg PO BID 07/18/23 12/21/23 XL] Amiodarone [Cordarone] 200 mg PO Q48H 12/21/23 12/21/23 Cholecalciferol [Vitamin D3 (125 125 mcg PO DAILY 12/21/23 12/21/23 Mcg = 5000 Iu)] Rivaroxaban [Xarelto] 20 mg PO HS 12/21/23 12/21/23 Previous Rx's Medication Instructions Recorded Losartan [Cozaar] 25 mg PO HS #30 tab 10/10/22 Furosemide [Lasix] 20 mg PO DAILY #7 tab 12/21/23 Potassium Chloride ER [K-Dur 10] 10 meq PO DAILY #7 tab 12/21/23 Allergies Allergy/AdvReac Type Severity Reaction Status Date / Time No Known Allergies Allergy Verified 12/21/23 19:44 Review of Systems ROS Statement: Those systems with pertinent positive or pertinent negative responses have been documented in the HPI. ROS Other: All systems not noted in ROS Statement are negative. Past Medical History Past Medical History: Atrial Fibrillation, Cancer, Hearing Disorder / Deafness, Hyperlipidemia, Hypertension Additional Past Medical History / Comment(s): Hx squamous cell skin cancer on back. [id number] REMISSION SINCE 04/2014. Some age related hearing loss. History of Any Multi-Drug Resistant Organisms: None Reported Past Surgical History: No Surgical Hx Reported Additional Past Surgical History / Comment(s): COLONOSCOPY, skin cancer removed from back/2 lymph nodes removed from left armpit 06/2023. Past Anesthesia/Blood Transfusion Reactions: No Reported Reaction, Motion Sickness Past Psychological History: No Psychological Hx Reported Smoking Status: Never smoker Past Alcohol Use History: Occasional Past Drug Use History: None Reported - Past Family History Mother Family Medical History: Cancer Father Family Medical History: AICD/Pacemaker, Coronary Artery Disease (CAD) Additional Family Medical History / Comment(s): still living General Exam - General Exam Comments Initial Comments: GENERAL: Patient is well-developed and well-nourished. Patient is nontoxic and well- hydrated and is in mild distress. ENT: Neck is soft and supple. No significant lymphadenopathy is noted. Oropharynx is clear. Moist mucous membranes. Neck has full range of motion without eliciting any pain. EYES: The sclera were anicteric and conjunctiva were pink and moist. Extraocular movements were intact and pupils were equal round and reactive to light. Eyelids were unremarkable. PULMONARY: Unlabored respirations. Good breath sounds bilaterally. No audible rales rhonchi or wheezing was noted. CARDIOVASCULAR: There is a regular rate and rhythm without any murmurs gallops or rubs. ABDOMEN: Soft and nontender with normal bowel sounds. SKIN: Skin is clear with no lesions or rashes and otherwise unremarkable. NEUROLOGIC: Patient is alert and oriented x3. Cranial nerves II through XII are grossly intact. Motor and sensory are also intact. Normal speech, volume and content. Symmetrical smile. MUSCULOSKELETAL: Normal extremities with adequate strength and full range of motion. Edema bilaterally LYMPHATICS: No significant lymphadenopathy is noted PSYCHIATRIC: Normal psychiatric evaluation. Limitations: no limitations Course Vital Signs 12/21/23 12/21/23 16:19 18:04 Temperature 97.8 F Pulse Rate 93 90 Respiratory 20 20 Rate Blood Pressure 147/91 142/97 O2 Sat by Pulse 97 96 Oximetry Medical Decision Making - Medical Decision Making EKG is interpreted by myself. EKG shows A-fib with rapid ventricular response at 104 bpm QRS is 98 QT interval 329 QTc is 389. Patient's EKG shows no ST segment ovation or depression. Was pt. sent in by a medical professional or institution (Dr., PA, ENVIRONMENTAL SERVICES COORDINATOR, urgent care, hospital, or fci...) When possible be specific @ -No Did you speak to anyone other than the patient for history (EMS, parent, family, police, friend...)? What history was obtained from this source @ -No Did you review nursing and triage notes (agree or disagree)? Why? @ -I reviewed and agree with nursing and triage notes Were old charts reviewed (outside hosp., previous admission, EMS record, old EKG, old radiological studies, urgent care reports/EKG's, fci records)? Report findings @ -No old charts were reviewed Differential Diagnosis? @ -Differential Dyspnea: Coronary syndrome, arrhythmia, tamponade, asthma, COPD, pulmonary embolism, pneumonia, pneumothorax, pulmonary effusion, anaphylaxis, diabetic ketoacidosis, flailed chest, pulmonary contusion, diaphragmatic rupture, anemia, neuromuscular, this is not meant to be an all-inclusive list. EKG interpreted by me (3pts min.). @ -As above X-rays interpreted by me (1pt min.). @ -X-ray shows no acute CT interpreted by me (1pt min.). @ -CT of the chest shows no acute abnormality U/S interpreted by me (1pt. min.). @ -None done What testing was considered but not performed or refused? (CT, X-rays, U/S, labs)? Why? @ -None What meds were considered but not given or refused? Why? @ -None Did you discuss the management of the patient with other professionals (professionals i.e. LU Douglas, ENVIRONMENTAL SERVICES COORDINATOR, lab, RT, psych nurse, social media editor, director social, teacher, casino surveillance officer, nurse case manager)? Give summary @ -No Was smoking cessation discussed for >3mins.? @ -No Was critical care preformed (if so, how long)? @ -No Were there social determinants of health that impacted care today? How? (Homelessness, low income, unemployed, alcoholism, drug addiction, transportation, low edu. Level, literacy, decrease access to med. care, fci, rehab)? @ -No Was there de-escalation of care discussed even if they declined (Discuss DNR or withdrawal of care, Hospice)? DNR status @ -No What co-morbidities impacted this encounter? (DM, HTN, Smoking, COPD, CAD, Cancer, CVA, ARF, Chemo, Hep., AIDS, mental health diagnosis, sleep apnea, morbid obesity)? @ -None Was patient admitted / discharged? Hospital course, mention meds given and route, prescriptions, significant lab abnormalities, going to OR and other pertinent info. @ -Patient received Lasix while in the emergency department he was voiding quite a bit. Patient CT and chest x-ray showed no acute normality. Lab work was normal except for an elevated BNP. Patient was having no chest pain his vital signs were stable patient has an appoint with cardiology which she is going to try to get to be earlier. Patient will go home on Lasix and potassium. Undiagnosed new problem with uncertain prognosis? @ -No Drug Therapy requiring intensive monitoring for toxicity (Heparin, Nitro, Insulin, Cardizem)? @ -No Were any procedures done? @ -No Diagnosis/symptom? @ -This Acute, or Chronic, or Acute on Chronic? @ -Acute Uncomplicated (without systemic symptoms) or Complicated (systemic symptoms)? @ -Complicated Side effects of treatment? @ -No Exacerbation, Progression, or Severe Exacerbation? @ -No Poses a threat to life or bodily function? How? (Chest pain, [place], [place], pneumonia, PE, COPD, DKA, ARF, appy, cholecystitis, CVA, Diverticulitis, Homicidal, Suicidal, threat to staff... and all critical care pts) @ -No - Lab Data Result diagrams: 12/21/23 18:02 12/21/23 18:02 Lab Results 12/21/23 12/21/23 12/21/23 Range/Units 18:02 18:02 18:02 WBC 4.6 (3.8-10.6) k/uL RBC 4.34 (4.30-5.90) m/uL Hgb 14.1 (13.0-17.5) gm/dL Hct 43.8 (39.0-53.0) % MCV 101.0 H (80.0-100.0) fL MCH 32.4 (25.0-35.0) pg MCHC 32.1 (31.0-37.0) g/dL RDW 13.6 (11.5-15.5) % Plt Count 146 L (150-450) k/uL MPV 8.3 Neutrophils % 68 % Lymphocytes % 19 % Monocytes % 6 % Eosinophils % 3 % Basophils % 1 % Neutrophils # 3.2 (1.3-7.7) k/uL Lymphocytes # 0.9 L (1.0-4.8) k/uL Monocytes # 0.3 (0-1.0) k/uL Eosinophils # 0.1 (0-0.7) k/uL Basophils # 0.0 (0-0.2) k/uL Macrocytosis Slight PT 11.4 (10.0-12.5) sec INR 1.1 (<1.2) APTT 24.6 (22.0-30.0) sec Sodium 137 (137-145) mmol/L Potassium 4.7 (3.5-5.1) mmol/L Chloride 105 (98-107) mmol/L Carbon Dioxide 27 (22-30) mmol/L Anion Gap 5 mmol/L BUN 25 H (9-20) mg/dL Creatinine 1.18 (0.66-1.25) mg/dL Est GFR (CKD-EPI)AfAm 73 (>60 ml/min/1.73 sqM) Est GFR (CKD-EPI)NonAf 63 (>60 ml/min/1.73 sqM) Glucose 92 (74-99) mg/dL Plasma Lactic Acid Lenny (0.7-2.0) mmol/L Calcium 9.6 (8.4-10.2) mg/dL Total Bilirubin 0.7 (0.2-1.3) mg/dL AST 58 (17-59) U/L ALT 87 H (4-49) U/L Alkaline Phosphatase 60 (38-126) U/L Troponin I (0.000-0.034) ng/mL NT-Pro-B Natriuret Pep 4450 pg/mL Total Protein 5.9 L (6.3-8.2) g/dL Albumin 4.0 (3.5-5.0) g/dL 12/21/23 12/21/23 Range/Units 18:02 18:02 WBC (3.8-10.6) k/uL RBC (4.30-5.90) m/uL Hgb (13.0-17.5) gm/dL Hct (39.0-53.0) % MCV (80.0-100.0) fL MCH (25.0-35.0) pg MCHC (31.0-37.0) g/dL RDW (11.5-15.5) % Plt Count (150-450) k/uL MPV Neutrophils % % Lymphocytes % % Monocytes % % Eosinophils % % Basophils % % Neutrophils # (1.3-7.7) k/uL Lymphocytes # (1.0-4.8) k/uL Monocytes # (0-1.0) k/uL Eosinophils # (0-0.7) k/uL Basophils # (0-0.2) k/uL Macrocytosis PT (10.0-12.5) sec INR (<1.2) APTT (22.0-30.0) sec Sodium (137-145) mmol/L Potassium (3.5-5.1) mmol/L Chloride (98-107) mmol/L Carbon Dioxide (22-30) mmol/L Anion Gap mmol/L BUN (9-20) mg/dL Creatinine (0.66-1.25) mg/dL Est GFR (CKD-EPI)AfAm (>60 ml/min/1.73 sqM) Est GFR (CKD-EPI)NonAf (>60 ml/min/1.73 sqM) Glucose (74-99) mg/dL Plasma Lactic Acid Lenny 0.9 (0.7-2.0) mmol/L Calcium (8.4-10.2) mg/dL Total Bilirubin (0.2-1.3) mg/dL AST (17-59) U/L ALT (4-49) U/L Alkaline Phosphatase (38-126) U/L Troponin I 0.021 (0.000-0.034) ng/mL NT-Pro-B Natriuret Pep pg/mL Total Protein (6.3-8.2) g/dL Albumin (3.5-5.0) g/dL Disposition Clinical Impression: Dyspnea Disposition: HOME SELF-CARE Condition: Good Instructions (If sedation given, give patient instructions): Dyspnea (ED) Prescriptions: Potassium Chloride ER [K-Dur 10] 10 meq PO DAILY #7 tab Furosemide [Lasix] 20 mg PO DAILY #7 tab Is patient prescribed a controlled substance at d/c from ED?: No Referrals: Sung Atwood DO [Primary Care Provider] - 1-2 days Kacey Mark MD [STAFF PHYSICIAN] - 1-2 days Time of Disposition: 20:40
--- NOTE | 2023-12-21 19:46 | CT ---
CTA CHEST EXAMINATION TYPE: CT chest angio for PE DATE OF EXAM: 12/21/2023 INDICATION: ALBA and edema CT DLP: 340.1 mGycm, Automated exposure control for dose reduction was used. CONTRAST: Patient injected with 90ml mL of Isovue 370. COMPARISON: None TECHNIQUE: CT of the chest is performed on a spiral scan at 2 mm thick sections. Study is performed with intravenous contrast timed for evaluation for pulmonary embolism. This will limit additional po rtions of the evaluation. 3-D MIP images reconstructed by the technologist are reviewed on the compu ter in the coronal and sagittal planes. FINDINGS: No persistent filling defects are evident to suggest an acute pulmonary embolism. No mediastinal or hilar adenopathy enlarged by CT criteria is evident. The ascending aorta diameter at the level of the main pulmonary artery is 4.3 cm. The main pulmonary artery diameter at the bifurcation is 3.7 cm. Lung windows are clear. Limited CT sections were through the upper abdomen. Upper abdomen appears unremarkable. IMPRESSION: 1. No acute pulmonary embolus. 2. No acute pulmonary process. 3. Ascending thoracic aortic aneurysm 4.3 cm [facility], Workstation: [id number], 12/21/2023 7:44 PM
[2023-12-21 20:59] VITALS: BP 131/89; PULSE 59; RESP 18; TEMP 98.8
== END 2023-12-21 21:00 | disposition home or self-care (01) ==
LOC: EC 16:04
DX: R06.02 Shortness of breath (principal)
CPT/HCPCS: 36415; 71046; 71275; 80053; 83605; 83880; 84484; 85025; 85610; 85730; 93005; 96374; 99285

== ENCOUNTER → 2024-01-08 | Outpatient (CLI) | payer MEDICARE ==
[2024-01-08 16:40] LABS: BUN/Creat Ratio 19.82 Ratio (12.00-20.00); Blood Urea Nitrogen 21.8 mg/dL (9.0-27.0); Calcium 9.5 mg/dL (8.7-10.3); Carbon Dioxide 25.8 mmol/L (21.6-31.8); Chloride 107 mmol/L (96-109); Glucose 111 mg/dL (70-110); Potassium 4.5 mmol/L (3.5-5.5); Sodium 143 mmol/L (135-145)
== END | disposition home or self-care (01) ==
LOC: LABWHC1 10:00
PROVIDERS: ATTEND Internal Medicine Interventional Cardiology
DX: I48.91 Unspecified atrial fibrillation (principal)
CPT/HCPCS: 36415; 80048

== ENCOUNTER 2024-03-04 05:57 | Day surgery (SDC) | payer MEDICARE ==
[2024-03-03 09:07] VITALS: BMI 24.7
[2024-03-04] MEDS ORDERED: SODIUM CHLORIDE 0.9% 1,000 ML IV SCH (06:30)
[2024-03-04] MEDS: LIDOCAINE 1% (10MG/ML) FOR IV START INTRADERMA STA (06:40)
[2024-03-04] MEDS: IV FLUID CONTINUATION 1,000 ML IV ONE (06:40)
[2024-03-04] MEDS: SODIUM CHLORIDE 0.9% 500 ML 500 ML IV ONE (06:40)
[2024-03-04 06:48] VITALS: TEMP 97.3
[2024-03-04 06:55] LABS: Glucose,Whole Blood 108 mg/dL (70-110)
[2024-03-04] MEDS ORDERED: PROPOFOL 10 MG/ML 20 ML VIAL IV ONE (07:15)
[2024-03-04 07:49] LABS: African American GFR (CKD) 84 (>60 ml/min/1.73 sqM); Anion Gap 9 mmol/L; Blood Urea Nitrogen 21 mg/dL (9-20); Calcium 10.1 mg/dL (8.4-10.2); Carbon Dioxide 27 mmol/L (22-30); Chloride 102 mmol/L (98-107); Glucose 107 mg/dL (74-99); Non-African American GFR(CKD) 73 (>60 ml/min/1.73 sqM); Potassium 4.2 mmol/L (3.5-5.1); Sodium 138 mmol/L (137-145)
[2024-03-04 08:24] VITALS: RESP 16
[2024-03-04 08:38] VITALS: BP 103/71; PULSE 53
--- NOTE | 2024-03-04 09:04 | CE ---
CARDIAC ELECTROPHYSIOLOGY REPORT PROCEDURE: Electrical cardioversion. INDICATION: Persistent atrial fibrillation in spite of pulmonary vein isolation and pharmacological therapy. CLINICAL INFORMATION: Mr. Humberto Reynolds is a 68-year-old gentleman who has history of atrial fib-related systolic heart failure, who had a recent ablation on February 16, but went back into atrial fibrillation probably around the or so february. I saw him in the office on , advised electrical cardioversion. He was compliant with Xarelto. Increased the beta eric from 25 to 50 mg b.i.d. He was brought in for the procedure electively. PROCEDURE NOTE: Under the influence of [id number] intravenous anesthetic agent with the attendance of the anesthesiologist, a single shock of 120 joules was delivered with anterior and posterior patches. The patient converted to sinus rhythm, remained hemodynamically stable. This was a successful electrical cardioversion. He will be discharged once he is ambulatory and has had a snack or a meal. He will be on amiodarone 200 mg b.i.d. and I will decrease the metoprolol tartrate to 25 mg in the morning only and he will be seen in the office on the at 3 p.m. MMODL / IJN: [id number] /
--- NOTE | 2024-03-04 10:33 | CA ---
Transthoracic Echo Report Name: Humberto Reynolds Age: 68 Gender: M : 1955 Exam Date: 03/04/2024 07:46 Exam Location: [facility] Ht (in): 71 Wt (lb): 188 Ordering Physician: Kacey Mark MD ([id number]) Attending/Referring Phys: Almond Roaster Taylor Medel RDCS Procedure CPT: Indications: a fib Cardiac Hx: Technical Quality: Good Contrast 1: Total Dose (mL): Contrast 2: Total Dose (mL): MEASUREMENTS (Male / Female) Normal Values 2D ECHO LV Diastolic Diameter PLAX 5.7 cm 4.2 - 5.9 / 3.9 - 5.3 cm LV Systolic Diameter PLAX 5.0 cm IVS Diastolic Thickness 1.4 cm 0.6 - 1.0 / 0.6 - 0.9 cm LVPW Diastolic Thickness 1.2 cm 0.6 - 1.0 / 0.6 - 0.9 cm LV Relative Wall Thickness 0.5 RV Internal Dim ED PLAX 2.7 cm LA Systolic Diameter LX 4.4 cm 3.0 - 4.0 / 2.7 - 3.8 cm LV Diastolic Volume MOD BP 136.4 cm??? 67 - 155 / 56 - 104 cm??? LV Systolic Volume MOD BP 111.6 cm??? 22 - 58 / 19 - 49 cm??? LV Ejection Fraction MOD BP 18.2 % >= 55 % LV Cardiac Index MOD BP 596.4 cm???/min???m??? LV Diastolic Volume MOD 4C 126.0 cm??? LV Systolic Volume MOD 4C 95.7 cm??? LV Ejection Fraction MOD 4C 24.0 % LV Cardiac Index MOD 4C 728.2 cm???/min???m??? LV Diastolic Length 4C 8.3 cm LV Systolic Length 4C 7.8 cm LV Diastolic Volume MOD 2C 139.7 cm??? LV Systolic Volume MOD 2C 117.8 cm??? LV Ejection Fraction MOD 2C 15.7 % LV Cardiac Index MOD 2C 527.1 cm???/min???m??? LV Diastolic Length 2C 9.0 cm LV Systolic Length 2C 8.7 cm M-MODE Aortic Root Diameter MM 4.3 cm LA Systolic Diameter MM 4.0 cm LA Ao Ratio MM 0.9 AV Cusp Separation MM 1.7 cm FINDINGS Left Ventricle Left ventricular ejection fraction is estimated at 20-25 %. Moderately increased septal wall thickness. Severely increased left ventricular systolic volume. Severely decreased left ventricular ejection fraction. Right Ventricle Right Atrium Left Atrium Mildly increased left atrial diameter. Mitral Valve Aortic Valve Tricuspid Valve Pulmonic Valve Pericardium Aorta Moderate aortic dilatation at the level of the sinuses of valsalva (root) 4.3cm. CONCLUSIONS Severe LV systolic dysfunction Moderate a dilated aorta Previewed by: Dr. Víctor Rosado MD (Electronically Signed) Final Date: 04 March 2024 10:33
== END 2024-03-04 08:56 | disposition home or self-care (01) ==
LOC: OR 05:57
PROVIDERS: ATTEND Internal Medicine Interventional Cardiology
DX: I48.11 Longstanding persistent atrial fibrillation (principal); C43.59 Malignant melanoma of other part of trunk; E78.00 Pure hypercholesterolemia, unspecified; I10 Essential (primary) hypertension; E11.9 Type 2 diabetes mellitus without complications; H91.90 Unspecified hearing loss, unspecified ear; Z90.49 Acquired absence of other specified parts of digestive tract; Z82.49 Family history of ischemic heart disease and other diseases of the circulatory system; Z85.6 Personal history of leukemia; Z79.02 Long term (current) use of antithrombotics/antiplatelets; Z79.899 Other long term (current) drug therapy
CPT/HCPCS: 93308; 92960; 80048; J2704